=== PATIENT | male | born 1970 | race Caucasian/White ===

== ENCOUNTER → 2017-05-28 | Day surgery (SDC) | payer OTHER ==
[~2017-05-28] MED LIST: ACETAMINOPHEN 1000 MG/100 ML 100 ML IV ONE; ASPI81TA21 PO; BUPIVACAINE/EPINEPHRINE 0.25% PF 30 ML VIAL ONE; COZA100T PO; HYDR-3533 PO; LACTATED RINGER'S 1000 ML INJ 1,000 ML ONE; LIDOCAINE 1%/EPINEPHrine 1:100,000 SOLN 50 ML VIAL ONE; MAXZ25 PO; METF500 PO; MIDAZOLAM HCL 2 MG/2 ML VIAL ONE; TAB-TAB PO; ZOFR4TAB3 SL; ceFAZolin 2 GM PREMIX 0 ML ONE
== END | disposition home or self-care (01) ==
LOC: ESDC 07:03
PROVIDERS: ATTEND Surgery
DX: L02.214 Cutaneous abscess of groin (principal); Z53.8 Procedure and treatment not carried out for other reasons
CPT/HCPCS: G0463; J0131; J7120; 99211; J0690; J2250

== ENCOUNTER 2018-05-06 20:47 | Inpatient (IN) ==
--- NOTE | 2018-05-06 22:37 | XR ---
EXAM DATE: 05/06/2018 10:26 PM EST AGE/SEX: 47 years / Male INDICATIONS: Chest pressure and shortness of breath. CLINICAL DATA: This is the patient's initial encounter. Patient reports that signs and symptoms have been present for 3 days and indicates a pain score of 7/10. MEDICAL/SURGICAL HISTORY: Chronic obstructive pulmonary disease. None. COMPARISON: [facility], XR CHEST PA AND LAT, 02/26/2015. . FINDINGS: Small lung volumes and with associated trace bibasilar atelectasis and mild vascular crowding. No ple ural effusion seen. No pneumothorax. Heart size stable, within normal limits. CONCLUSION: Minimal bibasilar atelectasis. Electronically signed by: Ramirez Holloway MD 05/06/2018 10:36 PM EST
--- NOTE | 2018-05-06 22:38 | ED ---
HPI General Chief complaint: Medical Clearance Stated complaint: Heart/SOB Complaint/Doctor Sent Time Seen by Provider: 05/06/18 21:19 History of Present Illness HPI narrative: Patient is a 47-year-old male history of diabetes, is on Lasix for swelling of his lower extremities but denies a history of congestive heart failure. Presents the emergency department for evaluation of shortness of breath and leg swelling gradually worsening over the past few weeks. Patient also endorses a history of orthopnea. Denies any history of fever cough or congestion. Seen by his primary care physician who noted that the patient did have some rales and some pedal edema and sent here for further evaluation. Symptoms moderate, for the past few weeks, gradually worsening, context and associated signs symptoms as above. Related Data Home Medications Medication Instructions Recorded Confirmed amlodipine 5 mg PO DAILY 05/06/18 05/06/18 fluticasone [Flovent HFA] 1 puff INHALATION Q12H PRN 05/06/18 05/06/18 furosemide 40 mg PO DAILY 05/06/18 05/06/18 gabapentin 400 mg PO TID 05/06/18 05/06/18 losartan 100 mg PO DAILY 05/06/18 05/06/18 potassium chloride 10 meq PO DAILY 05/06/18 05/06/18 atorvastatin [Lipitor] 20 mg PO DAILY 05/07/18 05/07/18 Previous Rx's Medication Instructions Recorded fenofibrate nanocrystallized 145 mg PO DAILY #30 tab 05/11/18 glipizide 5 mg PO BID #60 tab 05/11/18 metformin [Glucophage] 1,000 mg PO BIDPC #120 tab 05/11/18 furosemide 40 mg PO BID@0900,1800 #60 tab 05/15/18 insulin aspart U-100 [Novolog 1 - 12 unit SUBCUT TIDAC 30 Days 05/15/18 Flexpen U-] insulin detemir U-100 [Levemir 25 unit SQ BID 30 Days #15 ml 05/15/18 FlexTouch U-100 Insulin] losartan 50 mg PO DAILY #30 tab 05/15/18 spironolactone [Aldactone] 25 mg PO DAILY #30 tab 05/15/18 Allergies Allergy/AdvReac Type Severity Reaction Status Date / Time morphine Allergy Intermediate Anaphylaxis Verified 05/06/18 21:53 Review of Systems ROS: all other systems reviewed are negative PMFSH Medical History Medical History CHF (congestive heart failure) (Acute) COPD (chronic obstructive pulmonary disease) (Acute) Diabetes (Acute) HLD (hyperlipidemia) (Acute) HTN (hypertension) (Acute) Surgical History Surgical History History of colon resection (Acute) Social History Social History Substance History: No History of Abuse Second Hand Smoke Exposure: Yes Smoking Status: Current every day smoker Tobacco Type: Cigarettes How Often Do You Have a Drink Containing Alcohol: Never Recent Travel in [facility] within the Last 8 Weeks: No Recent Out of Country Travel within the Last 8 Weeks: No Immunization History Tetanus Immunization: Unsure Exam Narrative Exam Narrative: GENERAL: Well-developed obese male, tachypneic. Not in extremities. SKIN: Focused skin assessment warm/dry. HEAD: Atraumatic. Normocephalic. EYES: Pupils equal and round. No scleral icterus. No injection or drainage. ENT: No nasal bleeding or discharge. Mucous membranes pink and moist. NECK: Trachea midline. No JVD. CARDIOVASCULAR: Regular rate and rhythm. No murmur appreciated. RESPIRATORY: No accessory muscle use. Good air entry with bibasilar rales which are fine.. Breath sounds equal bilaterally. GASTROINTESTINAL: Abdomen soft, non-tender, nondistended. Hepatic and splenic margins not palpable. MUSCULOSKELETAL: No obvious deformities. No clubbing. No cyanosis. 2-3+ pitting edema from the patella distally and equal bilaterally. NEUROLOGICAL: Awake and alert. No obvious cranial nerve deficits. Motor grossly within normal limits. Normal speech. PSYCHIATRIC: Appropriate mood and affect; insight and judgment normal. Course Initial Documented Vital Signs Temperature 99.4 F 05/06/18 21:15 Pulse Rate 99 H 05/06/18 21:15 Respiratory Rate 26 H 05/06/18 21:15 Blood Pressure 164/89 H 05/06/18 21:15 Pulse Oximetry 86 L 05/06/18 21:15 Last Documented Vital Signs Temperature 97.5 F L 05/15/18 12:00 Pulse Rate 83 05/15/18 12:00 Respiratory Rate 20 05/15/18 12:00 Blood Pressure 115/58 L 05/15/18 12:00 Pulse Oximetry 94 L 05/15/18 12:00 Sign Out Sign Out Data: Patient Sign Out occurred on 05/06/18 at 23:13. Patient's care was discussed, and care was transferred from Pato Clements MD to Rosales Adair MD. Sign Out Comment: Follow up CT PE protocol. Lasix has been given. Last updated by Pato Clements MD at 05/06/18 23:03 Post-Handoff Eval: Patient still with hypoxia, mid to low 80s. Some of this may be obstructive related to sleep apnea or obesity hypoventilation. Nonetheless even with awakening and stimulation is remains hypoxic. BNP and chest x-ray does not suggest overt volume overload or another etiology for his hypoxia. CT is negative for pulmonary embolism. Given the persistent hypoxia diagnostic uncertainty, will recommend admission. Spoke with Dr. Han, agrees to admit the patient. Medical Decision Making MDM Narrative Medical decision making narrative: Patient room to the emergency department, sign symptoms consistent with congestive heart failure versus new onset congestive heart failure. Patient also has hypoxic respiratory failure with initial oxygen saturations 86%. Chest x-ray obtained and the patient does not have significant enough pulmonary edema to explain his 86 statin I think is reasonable to pursue a CT PE protocol as well. Basic labs pending at this time , I reviewed his EKG and shows no signs of active ischemia. Patient will obligate need for admission for further evaluation of congestive heart failure and hypoxic respiratory failure. Discussed with Dr. Luo at 2300 shift change to follow-up the labs and disposition patient. Medical Screen Exam Complete: Yes Emergency Medical Condition: Yes Lab Data Result diagrams: 05/08/18 06:10 05/15/18 07:31 Lab Results 05/06/18 05/06/18 05/06/18 Range/Units 21:49 21:49 21:49 WBC 9.7 (4.0-11.0) th/mm3 RBC 5.12 (4.50-5.90) mil/mm3 Hgb 15.8 (13.0-17.0) gm/dL Hct 46.1 (39.0-51.0) % MCV 90.0 (80.0-100.0) fL MCH 30.9 (27.0-34.0) pg MCHC 34.3 (32.0-36.0) % RDW 16.1 (11.6-17.2) % Plt Count 351 (150-450) th/mm3 MPV 8.4 (7.0-11.0) fL Neut % (Auto) 58.7 (16.0-70.0) % Lymph % (Auto) 29.4 (9.0-44.0) % Swisher % (Auto) 7.0 (0.0-8.0) % Eos % (Auto) 4.1 H (0.0-4.0) % Baso % (Auto) 0.8 (0.0-2.0) % Neut # (Auto) 5.7 (1.8-7.7) th/mm3 Lymph # (Auto) 2.9 (1.0-4.8) th/mm3 Swisher # (Auto) 0.7 (0.0-0.9) th/mm3 Eos # (Auto) 0.4 (0.0-0.4) th/mm3 Baso # (Auto) 0.1 (0.0-0.2) th/mm3 WBC Differential . Differential Comment Auto diff final PT 10.1 (9.8-11.6) sec INR 1.0 Ratio APTT 25.7 (23.4-31.7) sec Puncture Site Patient Temperature O2 Saturation (90-100) % ABG pH (7.380-7.420) ABG pCO2 (38-42) mmHg ABG pO2 (61-120) mmHg ABG HCO3 (22-26) mmol/L ABG O2 Content (12.0-20.0) Vol % ABG Base Excess (-2-2) mmol/L ABG Methemoglobin (0-2) % Keith Test Hemoglobin (12.0-16.0) G/DL Carboxyhemoglobin (0-4) % O2 Delivery Device Liter Flow L/M Critical Value Sodium (136-145) meq/L Potassium (3.5-5.1) meq/L Chloride (98-107) meq/L Carbon Dioxide (21.0-32.0) meq/L Anion Gap (5-15) meq/L BUN (7-18) mg/dL Creatinine (0.60-1.30) mg/dL Estimated GFR (>89) mL/min POC Glucose (68-110) mg/dl Random Glucose (74-106) mg/dL Hemoglobin A1c (4.3-6.0) % Uric Acid (2.6-7.2) mg/dl Calcium (8.5-10.1) mg/dL Magnesium (1.5-2.5) mg/dL Total Bilirubin (0.2-1.0) mg/dL AST (15-37) U/L ALT (12-78) U/L Alkaline Phosphatase (45-117) U/L Total Creatine Kinase (39-308) U/L Troponin I (0.02-0.05) ng/mL B-Natriuretic Peptide 13 (0-100) pg/mL Total Protein (6.4-8.2) g/dL Albumin (3.4-5.0) g/dL Triglycerides (42-150) mg/dL Cholesterol (120-200) mg/dL LDL Cholesterol, Calc (0-99) mg/dL HDL Cholesterol (40.0-60.0) mg/dL Cholesterol/HDL Ratio Ratio 05/06/18 05/07/18 05/07/18 Range/Units 21:49 07:17 11:10 WBC (4.0-11.0) th/mm3 RBC (4.50-5.90) mil/mm3 Hgb (13.0-17.0) gm/dL Hct (39.0-51.0) % MCV (80.0-100.0) fL MCH (27.0-34.0) pg MCHC (32.0-36.0) % RDW (11.6-17.2) % Plt Count (150-450) th/mm3 MPV (7.0-11.0) fL Neut % (Auto) (16.0-70.0) % Lymph % (Auto) (9.0-44.0) % Swisher % (Auto) (0.0-8.0) % Eos % (Auto) (0.0-4.0) % Baso % (Auto) (0.0-2.0) % Neut # (Auto) (1.8-7.7) th/mm3 Lymph # (Auto) (1.0-4.8) th/mm3 Swisher # (Auto) (0.0-0.9) th/mm3 Eos # (Auto) (0.0-0.4) th/mm3 Baso # (Auto) (0.0-0.2) th/mm3 WBC Differential Differential Comment PT (9.8-11.6) sec INR Ratio APTT (23.4-31.7) sec Puncture Site Patient Temperature O2 Saturation (90-100) % ABG pH (7.380-7.420) ABG pCO2 (38-42) mmHg ABG pO2 (61-120) mmHg ABG HCO3 (22-26) mmol/L ABG O2 Content (12.0-20.0) Vol % ABG Base Excess (-2-2) mmol/L ABG Methemoglobin (0-2) % Keith Test Hemoglobin (12.0-16.0) G/DL Carboxyhemoglobin (0-4) % O2 Delivery Device Liter Flow L/M Critical Value Sodium 131 L 135 L (136-145) meq/L Potassium 4.6 4.3 (3.5-5.1) meq/L Chloride 92 L 92 L (98-107) meq/L Carbon Dioxide 34.2 H 36.3 H (21.0-32.0) meq/L Anion Gap 5 7 (5-15) meq/L BUN 18 17 (7-18) mg/dL Creatinine 1.16 0.99 (0.60-1.30) mg/dL Estimated GFR 67 L 81 L (>89) mL/min POC Glucose 312 H (68-110) mg/dl Random Glucose 400 H 420 H (74-106) mg/dL Hemoglobin A1c (4.3-6.0) % Uric Acid (2.6-7.2) mg/dl Calcium 8.0 L 8.5 (8.5-10.1) mg/dL Magnesium (1.5-2.5) mg/dL Total Bilirubin 0.7 (0.2-1.0) mg/dL AST 54 H (15-37) U/L ALT (12-78) U/L Alkaline Phosphatase 117 (45-117) U/L Total Creatine Kinase (39-308) U/L Troponin I Less than 0.02 L (0.02-0.05) ng/mL B-Natriuretic Peptide (0-100) pg/mL Total Protein 7.5 (6.4-8.2) g/dL Albumin 3.0 L (3.4-5.0) g/dL Triglycerides (42-150) mg/dL Cholesterol (120-200) mg/dL LDL Cholesterol, Calc (0-99) mg/dL HDL Cholesterol (40.0-60.0) mg/dL Cholesterol/HDL Ratio Ratio 05/07/18 05/07/18 05/07/18 Range/Units 11:10 13:02 16:54 WBC (4.0-11.0) th/mm3 RBC (4.50-5.90) mil/mm3 Hgb (13.0-17.0) gm/dL Hct (39.0-51.0) % MCV (80.0-100.0) fL MCH (27.0-34.0) pg MCHC (32.0-36.0) % RDW (11.6-17.2) % Plt Count (150-450) th/mm3 MPV (7.0-11.0) fL Neut % (Auto) (16.0-70.0) % Lymph % (Auto) (9.0-44.0) % Swisher % (Auto) (0.0-8.0) % Eos % (Auto) (0.0-4.0) % Baso % (Auto) (0.0-2.0) % Neut # (Auto) (1.8-7.7) th/mm3 Lymph # (Auto) (1.0-4.8) th/mm3 Swisher # (Auto) (0.0-0.9) th/mm3 Eos # (Auto) (0.0-0.4) th/mm3 Baso # (Auto) (0.0-0.2) th/mm3 WBC Differential Differential Comment PT (9.8-11.6) sec INR Ratio APTT (23.4-31.7) sec Puncture Site Patient Temperature O2 Saturation (90-100) % ABG pH (7.380-7.420) ABG pCO2 (38-42) mmHg ABG pO2 (61-120) mmHg ABG HCO3 (22-26) mmol/L ABG O2 Content (12.0-20.0) Vol % ABG Base Excess (-2-2) mmol/L ABG Methemoglobin (0-2) % Keith Test Hemoglobin (12.0-16.0) G/DL Carboxyhemoglobin (0-4) % O2 Delivery Device Liter Flow L/M Critical Value Sodium (136-145) meq/L Potassium (3.5-5.1) meq/L Chloride (98-107) meq/L Carbon Dioxide (21.0-32.0) meq/L Anion Gap (5-15) meq/L BUN (7-18) mg/dL Creatinine (0.60-1.30) mg/dL Estimated GFR (>89) mL/min POC Glucose 416 H 357 H (68-110) mg/dl Random Glucose (74-106) mg/dL Hemoglobin A1c (4.3-6.0) % Uric Acid 7.0 (2.6-7.2) mg/dl Calcium (8.5-10.1) mg/dL Magnesium (1.5-2.5) mg/dL Total Bilirubin (0.2-1.0) mg/dL AST (15-37) U/L ALT (12-78) U/L Alkaline Phosphatase (45-117) U/L Total Creatine Kinase (39-308) U/L Troponin I (0.02-0.05) ng/mL B-Natriuretic Peptide (0-100) pg/mL Total Protein (6.4-8.2) g/dL Albumin (3.4-5.0) g/dL Triglycerides (42-150) mg/dL Cholesterol (120-200) mg/dL LDL Cholesterol, Calc (0-99) mg/dL HDL Cholesterol (40.0-60.0) mg/dL Cholesterol/HDL Ratio Ratio 05/07/18 05/08/18 05/08/18 Range/Units 20:04 04:39 06:10 WBC 10.2 (4.0-11.0) th/mm3 RBC 5.23 (4.50-5.90) mil/mm3 Hgb 15.0 (13.0-17.0) gm/dL Hct 47.4 (39.0-51.0) % MCV 90.5 (80.0-100.0) fL MCH 28.7 (27.0-34.0) pg MCHC 31.7 L (32.0-36.0) % RDW 15.9 (11.6-17.2) % Plt Count 277 (150-450) th/mm3 MPV 7.4 (7.0-11.0) fL Neut % (Auto) 57.6 (16.0-70.0) % Lymph % (Auto) 29.9 (9.0-44.0) % Swisher % (Auto) 8.2 H (0.0-8.0) % Eos % (Auto) 3.7 (0.0-4.0) % Baso % (Auto) 0.6 (0.0-2.0) % Neut # (Auto) 5.9 (1.8-7.7) th/mm3 Lymph # (Auto) 3.1 (1.0-4.8) th/mm3 Swisher # (Auto) 0.8 (0.0-0.9) th/mm3 Eos # (Auto) 0.4 (0.0-0.4) th/mm3 Baso # (Auto) 0.1 (0.0-0.2) th/mm3 WBC Differential . Differential Comment Auto diff final PT (9.8-11.6) sec INR Ratio APTT (23.4-31.7) sec Puncture Site Patient Temperature O2 Saturation (90-100) % ABG pH (7.380-7.420) ABG pCO2 (38-42) mmHg ABG pO2 (61-120) mmHg ABG HCO3 (22-26) mmol/L ABG O2 Content (12.0-20.0) Vol % ABG Base Excess (-2-2) mmol/L ABG Methemoglobin (0-2) % Keith Test Hemoglobin (12.0-16.0) G/DL Carboxyhemoglobin (0-4) % O2 Delivery Device Liter Flow L/M Critical Value Sodium (136-145) meq/L Potassium (3.5-5.1) meq/L Chloride (98-107) meq/L Carbon Dioxide (21.0-32.0) meq/L Anion Gap (5-15) meq/L BUN (7-18) mg/dL Creatinine (0.60-1.30) mg/dL Estimated GFR (>89) mL/min POC Glucose 307 H 230 H (68-110) mg/dl Random Glucose (74-106) mg/dL Hemoglobin A1c (4.3-6.0) % Uric Acid (2.6-7.2) mg/dl Calcium (8.5-10.1) mg/dL Magnesium (1.5-2.5) mg/dL Total Bilirubin (0.2-1.0) mg/dL AST (15-37) U/L ALT (12-78) U/L Alkaline Phosphatase (45-117) U/L Total Creatine Kinase (39-308) U/L Troponin I (0.02-0.05) ng/mL B-Natriuretic Peptide (0-100) pg/mL Total Protein (6.4-8.2) g/dL Albumin (3.4-5.0) g/dL Triglycerides (42-150) mg/dL Cholesterol (120-200) mg/dL LDL Cholesterol, Calc (0-99) mg/dL HDL Cholesterol (40.0-60.0) mg/dL Cholesterol/HDL Ratio Ratio 05/08/18 05/08/18 05/08/18 Range/Units 06:10 06:10 06:10 WBC (4.0-11.0) th/mm3 RBC (4.50-5.90) mil/mm3 Hgb (13.0-17.0) gm/dL Hct (39.0-51.0) % MCV (80.0-100.0) fL MCH (27.0-34.0) pg MCHC (32.0-36.0) % RDW (11.6-17.2) % Plt Count (150-450) th/mm3 MPV (7.0-11.0) fL Neut % (Auto) (16.0-70.0) % Lymph % (Auto) (9.0-44.0) % Swisher % (Auto) (0.0-8.0) % Eos % (Auto) (0.0-4.0) % Baso % (Auto) (0.0-2.0) % Neut # (Auto) (1.8-7.7) th/mm3 Lymph # (Auto) (1.0-4.8) th/mm3 Swisher # (Auto) (0.0-0.9) th/mm3 Eos # (Auto) (0.0-0.4) th/mm3 Baso # (Auto) (0.0-0.2) th/mm3 WBC Differential Differential Comment PT (9.8-11.6) sec INR Ratio APTT (23.4-31.7) sec Puncture Site Patient Temperature O2 Saturation (90-100) % ABG pH (7.380-7.420) ABG pCO2 (38-42) mmHg ABG pO2 (61-120) mmHg ABG HCO3 (22-26) mmol/L ABG O2 Content (12.0-20.0) Vol % ABG Base Excess (-2-2) mmol/L ABG Methemoglobin (0-2) % Keith Test Hemoglobin (12.0-16.0) G/DL Carboxyhemoglobin (0-4) % O2 Delivery Device Liter Flow L/M Critical Value Sodium 135 L (136-145) meq/L Potassium 3.4 L D (3.5-5.1) meq/L Chloride 91 L (98-107) meq/L Carbon Dioxide 37.5 H (21.0-32.0) meq/L Anion Gap 7 (5-15) meq/L BUN 19 H (7-18) mg/dL Creatinine 0.94 (0.60-1.30) mg/dL Estimated GFR 86 L (>89) mL/min POC Glucose (68-110) mg/dl Random Glucose 265 H D (74-106) mg/dL Hemoglobin A1c 14.3 H (4.3-6.0) % Uric Acid (2.6-7.2) mg/dl Calcium 8.5 (8.5-10.1) mg/dL Magnesium (1.5-2.5) mg/dL Total Bilirubin (0.2-1.0) mg/dL AST (15-37) U/L ALT (12-78) U/L Alkaline Phosphatase (45-117) U/L Total Creatine Kinase 47 (39-308) U/L Troponin I Less than 0.02 L (0.02-0.05) ng/mL B-Natriuretic Peptide (0-100) pg/mL Total Protein (6.4-8.2) g/dL Albumin (3.4-5.0) g/dL Triglycerides (42-150) mg/dL Cholesterol (120-200) mg/dL LDL Cholesterol, Calc (0-99) mg/dL HDL Cholesterol (40.0-60.0) mg/dL Cholesterol/HDL Ratio Ratio 05/08/18 05/08/18 05/08/18 Range/Units 08:24 13:05 17:19 WBC (4.0-11.0) th/mm3 RBC (4.50-5.90) mil/mm3 Hgb (13.0-17.0) gm/dL Hct (39.0-51.0) % MCV (80.0-100.0) fL MCH (27.0-34.0) pg MCHC (32.0-36.0) % RDW (11.6-17.2) % Plt Count (150-450) th/mm3 MPV (7.0-11.0) fL Neut % (Auto) (16.0-70.0) % Lymph % (Auto) (9.0-44.0) % Swisher % (Auto) (0.0-8.0) % Eos % (Auto) (0.0-4.0) % Baso % (Auto) (0.0-2.0) % Neut # (Auto) (1.8-7.7) th/mm3 Lymph # (Auto) (1.0-4.8) th/mm3 Swisher # (Auto) (0.0-0.9) th/mm3 Eos # (Auto) (0.0-0.4) th/mm3 Baso # (Auto) (0.0-0.2) th/mm3 WBC Differential Differential Comment PT (9.8-11.6) sec INR Ratio APTT (23.4-31.7) sec Puncture Site Patient Temperature O2 Saturation (90-100) % ABG pH (7.380-7.420) ABG pCO2 (38-42) mmHg ABG pO2 (61-120) mmHg ABG HCO3 (22-26) mmol/L ABG O2 Content (12.0-20.0) Vol % ABG Base Excess (-2-2) mmol/L ABG Methemoglobin (0-2) % Keith Test Hemoglobin (12.0-16.0) G/DL Carboxyhemoglobin (0-4) % O2 Delivery Device Liter Flow L/M Critical Value Sodium (136-145) meq/L Potassium (3.5-5.1) meq/L Chloride (98-107) meq/L Carbon Dioxide (21.0-32.0) meq/L Anion Gap (5-15) meq/L BUN (7-18) mg/dL Creatinine (0.60-1.30) mg/dL Estimated GFR (>89) mL/min POC Glucose 284 H 281 H 328 H (68-110) mg/dl Random Glucose (74-106) mg/dL Hemoglobin A1c (4.3-6.0) % Uric Acid (2.6-7.2) mg/dl Calcium (8.5-10.1) mg/dL Magnesium (1.5-2.5) mg/dL Total Bilirubin (0.2-1.0) mg/dL AST (15-37) U/L ALT (12-78) U/L Alkaline Phosphatase (45-117) U/L Total Creatine Kinase (39-308) U/L Troponin I (0.02-0.05) ng/mL B-Natriuretic Peptide (0-100) pg/mL Total Protein (6.4-8.2) g/dL Albumin (3.4-5.0) g/dL Triglycerides (42-150) mg/dL Cholesterol (120-200) mg/dL LDL Cholesterol, Calc (0-99) mg/dL HDL Cholesterol (40.0-60.0) mg/dL Cholesterol/HDL Ratio Ratio 05/08/18 05/09/18 05/09/18 Range/Units 19:49 07:11 08:21 WBC (4.0-11.0) th/mm3 RBC (4.50-5.90) mil/mm3 Hgb (13.0-17.0) gm/dL Hct (39.0-51.0) % MCV (80.0-100.0) fL MCH (27.0-34.0) pg MCHC (32.0-36.0) % RDW (11.6-17.2) % Plt Count (150-450) th/mm3 MPV (7.0-11.0) fL Neut % (Auto) (16.0-70.0) % Lymph % (Auto) (9.0-44.0) % Swisher % (Auto) (0.0-8.0) % Eos % (Auto) (0.0-4.0) % Baso % (Auto) (0.0-2.0) % Neut # (Auto) (1.8-7.7) th/mm3 Lymph # (Auto) (1.0-4.8) th/mm3 Swisher # (Auto) (0.0-0.9) th/mm3 Eos # (Auto) (0.0-0.4) th/mm3 Baso # (Auto) (0.0-0.2) th/mm3 WBC Differential Differential Comment PT (9.8-11.6) sec INR Ratio APTT (23.4-31.7) sec Puncture Site Patient Temperature O2 Saturation (90-100) % ABG pH (7.380-7.420) ABG pCO2 (38-42) mmHg ABG pO2 (61-120) mmHg ABG HCO3 (22-26) mmol/L ABG O2 Content (12.0-20.0) Vol % ABG Base Excess (-2-2) mmol/L ABG Methemoglobin (0-2) % Keith Test Hemoglobin (12.0-16.0) G/DL Carboxyhemoglobin (0-4) % O2 Delivery Device Liter Flow L/M Critical Value Sodium 136 (136-145) meq/L Potassium 3.9 (3.5-5.1) meq/L Chloride 94 L (98-107) meq/L Carbon Dioxide 34.1 H (21.0-32.0) meq/L Anion Gap 8 (5-15) meq/L BUN 20 H (7-18) mg/dL Creatinine 0.82 (0.60-1.30) mg/dL Estimated GFR Greater than 89 (>89) mL/min POC Glucose 349 H 225 H (68-110) mg/dl Random Glucose 258 H (74-106) mg/dL Hemoglobin A1c (4.3-6.0) % Uric Acid (2.6-7.2) mg/dl Calcium 9.0 (8.5-10.1) mg/dL Magnesium (1.5-2.5) mg/dL Total Bilirubin (0.2-1.0) mg/dL AST (15-37) U/L ALT (12-78) U/L Alkaline Phosphatase (45-117) U/L Total Creatine Kinase (39-308) U/L Troponin I (0.02-0.05) ng/mL B-Natriuretic Peptide (0-100) pg/mL Total Protein (6.4-8.2) g/dL Albumin (3.4-5.0) g/dL Triglycerides 922 H (42-150) mg/dL Cholesterol 254 H (120-200) mg/dL LDL Cholesterol, Calc (0-99) mg/dL HDL Cholesterol 26.5 L (40.0-60.0) mg/dL Cholesterol/HDL Ratio 9.58 Ratio 05/09/18 05/09/18 05/09/18 Range/Units 12:19 18:08 19:58 WBC (4.0-11.0) th/mm3 RBC (4.50-5.90) mil/mm3 Hgb (13.0-17.0) gm/dL Hct (39.0-51.0) % MCV (80.0-100.0) fL MCH (27.0-34.0) pg MCHC (32.0-36.0) % RDW (11.6-17.2) % Plt Count (150-450) th/mm3 MPV (7.0-11.0) fL Neut % (Auto) (16.0-70.0) % Lymph % (Auto) (9.0-44.0) % Swisher % (Auto) (0.0-8.0) % Eos % (Auto) (0.0-4.0) % Baso % (Auto) (0.0-2.0) % Neut # (Auto) (1.8-7.7) th/mm3 Lymph # (Auto) (1.0-4.8) th/mm3 Swisher # (Auto) (0.0-0.9) th/mm3 Eos # (Auto) (0.0-0.4) th/mm3 Baso # (Auto) (0.0-0.2) th/mm3 WBC Differential Differential Comment PT (9.8-11.6) sec INR Ratio APTT (23.4-31.7) sec Puncture Site Patient Temperature O2 Saturation (90-100) % ABG pH (7.380-7.420) ABG pCO2 (38-42) mmHg ABG pO2 (61-120) mmHg ABG HCO3 (22-26) mmol/L ABG O2 Content (12.0-20.0) Vol % ABG Base Excess (-2-2) mmol/L ABG Methemoglobin (0-2) % Keith Test Hemoglobin (12.0-16.0) G/DL Carboxyhemoglobin (0-4) % O2 Delivery Device Liter Flow L/M Critical Value Sodium (136-145) meq/L Potassium (3.5-5.1) meq/L Chloride (98-107) meq/L Carbon Dioxide (21.0-32.0) meq/L Anion Gap (5-15) meq/L BUN (7-18) mg/dL Creatinine (0.60-1.30) mg/dL Estimated GFR (>89) mL/min POC Glucose 336 H 287 H 222 H (68-110) mg/dl Random Glucose (74-106) mg/dL Hemoglobin A1c (4.3-6.0) % Uric Acid (2.6-7.2) mg/dl Calcium (8.5-10.1) mg/dL Magnesium (1.5-2.5) mg/dL Total Bilirubin (0.2-1.0) mg/dL AST (15-37) U/L ALT (12-78) U/L Alkaline Phosphatase (45-117) U/L Total Creatine Kinase (39-308) U/L Troponin I (0.02-0.05) ng/mL B-Natriuretic Peptide (0-100) pg/mL Total Protein (6.4-8.2) g/dL Albumin (3.4-5.0) g/dL Triglycerides (42-150) mg/dL Cholesterol (120-200) mg/dL LDL Cholesterol, Calc (0-99) mg/dL HDL Cholesterol (40.0-60.0) mg/dL Cholesterol/HDL Ratio Ratio 05/10/18 05/10/18 05/10/18 Range/Units 07:12 12:00 17:53 WBC (4.0-11.0) th/mm3 RBC (4.50-5.90) mil/mm3 Hgb (13.0-17.0) gm/dL Hct (39.0-51.0) % MCV (80.0-100.0) fL MCH (27.0-34.0) pg MCHC (32.0-36.0) % RDW (11.6-17.2) % Plt Count (150-450) th/mm3 MPV (7.0-11.0) fL Neut % (Auto) (16.0-70.0) % Lymph % (Auto) (9.0-44.0) % Swisher % (Auto) (0.0-8.0) % Eos % (Auto) (0.0-4.0) % Baso % (Auto) (0.0-2.0) % Neut # (Auto) (1.8-7.7) th/mm3 Lymph # (Auto) (1.0-4.8) th/mm3 Swisher # (Auto) (0.0-0.9) th/mm3 Eos # (Auto) (0.0-0.4) th/mm3 Baso # (Auto) (0.0-0.2) th/mm3 WBC Differential Differential Comment PT (9.8-11.6) sec INR Ratio APTT (23.4-31.7) sec Puncture Site Patient Temperature O2 Saturation (90-100) % ABG pH (7.380-7.420) ABG pCO2 (38-42) mmHg ABG pO2 (61-120) mmHg ABG HCO3 (22-26) mmol/L ABG O2 Content (12.0-20.0) Vol % ABG Base Excess (-2-2) mmol/L ABG Methemoglobin (0-2) % Keith Test Hemoglobin (12.0-16.0) G/DL Carboxyhemoglobin (0-4) % O2 Delivery Device Liter Flow L/M Critical Value Sodium (136-145) meq/L Potassium (3.5-5.1) meq/L Chloride (98-107) meq/L Carbon Dioxide (21.0-32.0) meq/L Anion Gap (5-15) meq/L BUN (7-18) mg/dL Creatinine (0.60-1.30) mg/dL Estimated GFR (>89) mL/min POC Glucose 243 H 237 H 233 H (68-110) mg/dl Random Glucose (74-106) mg/dL Hemoglobin A1c (4.3-6.0) % Uric Acid (2.6-7.2) mg/dl Calcium (8.5-10.1) mg/dL Magnesium (1.5-2.5) mg/dL Total Bilirubin (0.2-1.0) mg/dL AST (15-37) U/L ALT (12-78) U/L Alkaline Phosphatase (45-117) U/L Total Creatine Kinase (39-308) U/L Troponin I (0.02-0.05) ng/mL B-Natriuretic Peptide (0-100) pg/mL Total Protein (6.4-8.2) g/dL Albumin (3.4-5.0) g/dL Triglycerides (42-150) mg/dL Cholesterol (120-200) mg/dL LDL Cholesterol, Calc (0-99) mg/dL HDL Cholesterol (40.0-60.0) mg/dL Cholesterol/HDL Ratio Ratio 05/10/18 05/11/18 05/11/18 Range/Units 20:06 04:57 04:57 WBC (4.0-11.0) th/mm3 RBC (4.50-5.90) mil/mm3 Hgb (13.0-17.0) gm/dL Hct (39.0-51.0) % MCV (80.0-100.0) fL MCH (27.0-34.0) pg MCHC (32.0-36.0) % RDW (11.6-17.2) % Plt Count (150-450) th/mm3 MPV (7.0-11.0) fL Neut % (Auto) (16.0-70.0) % Lymph % (Auto) (9.0-44.0) % Swisher % (Auto) (0.0-8.0) % Eos % (Auto) (0.0-4.0) % Baso % (Auto) (0.0-2.0) % Neut # (Auto) (1.8-7.7) th/mm3 Lymph # (Auto) (1.0-4.8) th/mm3 Swisher # (Auto) (0.0-0.9) th/mm3 Eos # (Auto) (0.0-0.4) th/mm3 Baso # (Auto) (0.0-0.2) th/mm3 WBC Differential Differential Comment PT (9.8-11.6) sec INR Ratio APTT (23.4-31.7) sec Puncture Site Patient Temperature O2 Saturation (90-100) % ABG pH (7.380-7.420) ABG pCO2 (38-42) mmHg ABG pO2 (61-120) mmHg ABG HCO3 (22-26) mmol/L ABG O2 Content (12.0-20.0) Vol % ABG Base Excess (-2-2) mmol/L ABG Methemoglobin (0-2) % Keith Test Hemoglobin (12.0-16.0) G/DL Carboxyhemoglobin (0-4) % O2 Delivery Device Liter Flow L/M Critical Value Sodium 136 (136-145) meq/L Potassium 4.2 (3.5-5.1) meq/L Chloride 94 L (98-107) meq/L Carbon Dioxide 37.5 H (21.0-32.0) meq/L Anion Gap 5 (5-15) meq/L BUN 21 H (7-18) mg/dL Creatinine 0.85 (0.60-1.30) mg/dL Estimated GFR Greater than 89 (>89) mL/min POC Glucose 288 H (68-110) mg/dl Random Glucose 227 H (74-106) mg/dL Hemoglobin A1c (4.3-6.0) % Uric Acid (2.6-7.2) mg/dl Calcium 8.1 L D (8.5-10.1) mg/dL Magnesium 2.4 (1.5-2.5) mg/dL Total Bilirubin (0.2-1.0) mg/dL AST (15-37) U/L ALT (12-78) U/L Alkaline Phosphatase (45-117) U/L Total Creatine Kinase (39-308) U/L Troponin I (0.02-0.05) ng/mL B-Natriuretic Peptide 16 (0-100) pg/mL Total Protein (6.4-8.2) g/dL Albumin (3.4-5.0) g/dL Triglycerides (42-150) mg/dL Cholesterol (120-200) mg/dL LDL Cholesterol, Calc (0-99) mg/dL HDL Cholesterol (40.0-60.0) mg/dL Cholesterol/HDL Ratio Ratio 05/11/18 05/11/18 05/11/18 Range/Units 07:17 12:38 17:28 WBC (4.0-11.0) th/mm3 RBC (4.50-5.90) mil/mm3 Hgb (13.0-17.0) gm/dL Hct (39.0-51.0) % MCV (80.0-100.0) fL MCH (27.0-34.0) pg MCHC (32.0-36.0) % RDW (11.6-17.2) % Plt Count (150-450) th/mm3 MPV (7.0-11.0) fL Neut % (Auto) (16.0-70.0) % Lymph % (Auto) (9.0-44.0) % Swisher % (Auto) (0.0-8.0) % Eos % (Auto) (0.0-4.0) % Baso % (Auto) (0.0-2.0) % Neut # (Auto) (1.8-7.7) th/mm3 Lymph # (Auto) (1.0-4.8) th/mm3 Swisher # (Auto) (0.0-0.9) th/mm3 Eos # (Auto) (0.0-0.4) th/mm3 Baso # (Auto) (0.0-0.2) th/mm3 WBC Differential Differential Comment PT (9.8-11.6) sec INR Ratio APTT (23.4-31.7) sec Puncture Site Patient Temperature O2 Saturation (90-100) % ABG pH (7.380-7.420) ABG pCO2 (38-42) mmHg ABG pO2 (61-120) mmHg ABG HCO3 (22-26) mmol/L ABG O2 Content (12.0-20.0) Vol % ABG Base Excess (-2-2) mmol/L ABG Methemoglobin (0-2) % Keith Test Hemoglobin (12.0-16.0) G/DL Carboxyhemoglobin (0-4) % O2 Delivery Device Liter Flow L/M Critical Value Sodium (136-145) meq/L Potassium (3.5-5.1) meq/L Chloride (98-107) meq/L Carbon Dioxide (21.0-32.0) meq/L Anion Gap (5-15) meq/L BUN (7-18) mg/dL Creatinine (0.60-1.30) mg/dL Estimated GFR (>89) mL/min POC Glucose 236 H 274 H 280 H (68-110) mg/dl Random Glucose (74-106) mg/dL Hemoglobin A1c (4.3-6.0) % Uric Acid (2.6-7.2) mg/dl Calcium (8.5-10.1) mg/dL Magnesium (1.5-2.5) mg/dL Total Bilirubin (0.2-1.0) mg/dL AST (15-37) U/L ALT (12-78) U/L Alkaline Phosphatase (45-117) U/L Total Creatine Kinase (39-308) U/L Troponin I (0.02-0.05) ng/mL B-Natriuretic Peptide (0-100) pg/mL Total Protein (6.4-8.2) g/dL Albumin (3.4-5.0) g/dL Triglycerides (42-150) mg/dL Cholesterol (120-200) mg/dL LDL Cholesterol, Calc (0-99) mg/dL HDL Cholesterol (40.0-60.0) mg/dL Cholesterol/HDL Ratio Ratio 05/11/18 05/11/18 05/12/18 Range/Units 19:49 20:20 05:08 WBC (4.0-11.0) th/mm3 RBC (4.50-5.90) mil/mm3 Hgb (13.0-17.0) gm/dL Hct (39.0-51.0) % MCV (80.0-100.0) fL MCH (27.0-34.0) pg MCHC (32.0-36.0) % RDW (11.6-17.2) % Plt Count (150-450) th/mm3 MPV (7.0-11.0) fL Neut % (Auto) (16.0-70.0) % Lymph % (Auto) (9.0-44.0) % Swisher % (Auto) (0.0-8.0) % Eos % (Auto) (0.0-4.0) % Baso % (Auto) (0.0-2.0) % Neut # (Auto) (1.8-7.7) th/mm3 Lymph # (Auto) (1.0-4.8) th/mm3 Swisher # (Auto) (0.0-0.9) th/mm3 Eos # (Auto) (0.0-0.4) th/mm3 Baso # (Auto) (0.0-0.2) th/mm3 WBC Differential Differential Comment PT (9.8-11.6) sec INR Ratio APTT (23.4-31.7) sec Puncture Site Right radial Patient Temperature 98.6 O2 Saturation 93 (90-100) % ABG pH 7.38 (7.380-7.420) ABG pCO2 70 H* (38-42) mmHg ABG pO2 81 (61-120) mmHg ABG HCO3 41 H (22-26) mmol/L ABG O2 Content 18.8 (12.0-20.0) Vol % ABG Base Excess 15.1 H (-2-2) mmol/L ABG Methemoglobin 1.3 (0-2) % Keith Test Present Hemoglobin 14.4 (12.0-16.0) G/DL Carboxyhemoglobin 1.7 (0-4) % O2 Delivery Device Nasal cannula Liter Flow 4.00 L/M Critical Value Yes Sodium 135 L (136-145) meq/L Potassium 4.1 (3.5-5.1) meq/L Chloride 92 L (98-107) meq/L Carbon Dioxide 38.4 H (21.0-32.0) meq/L Anion Gap 5 (5-15) meq/L BUN 28 H (7-18) mg/dL Creatinine 0.88 (0.60-1.30) mg/dL Estimated GFR Greater than 89 (>89) mL/min POC Glucose 256 H (68-110) mg/dl Random Glucose 168 H (74-106) mg/dL Hemoglobin A1c (4.3-6.0) % Uric Acid (2.6-7.2) mg/dl Calcium 9.0 D (8.5-10.1) mg/dL Magnesium (1.5-2.5) mg/dL Total Bilirubin (0.2-1.0) mg/dL AST (15-37) U/L ALT (12-78) U/L Alkaline Phosphatase (45-117) U/L Total Creatine Kinase (39-308) U/L Troponin I (0.02-0.05) ng/mL B-Natriuretic Peptide (0-100) pg/mL Total Protein (6.4-8.2) g/dL Albumin (3.4-5.0) g/dL Triglycerides (42-150) mg/dL Cholesterol (120-200) mg/dL LDL Cholesterol, Calc (0-99) mg/dL HDL Cholesterol (40.0-60.0) mg/dL Cholesterol/HDL Ratio Ratio 05/12/18 05/12/18 05/12/18 Range/Units 05:08 07:23 12:05 WBC (4.0-11.0) th/mm3 RBC (4.50-5.90) mil/mm3 Hgb (13.0-17.0) gm/dL Hct (39.0-51.0) % MCV (80.0-100.0) fL MCH (27.0-34.0) pg MCHC (32.0-36.0) % RDW (11.6-17.2) % Plt Count (150-450) th/mm3 MPV (7.0-11.0) fL Neut % (Auto) (16.0-70.0) % Lymph % (Auto) (9.0-44.0) % Swisher % (Auto) (0.0-8.0) % Eos % (Auto) (0.0-4.0) % Baso % (Auto) (0.0-2.0) % Neut # (Auto) (1.8-7.7) th/mm3 Lymph # (Auto) (1.0-4.8) th/mm3 Swisher # (Auto) (0.0-0.9) th/mm3 Eos # (Auto) (0.0-0.4) th/mm3 Baso # (Auto) (0.0-0.2) th/mm3 WBC Differential Differential Comment PT (9.8-11.6) sec INR Ratio APTT (23.4-31.7) sec Puncture Site Patient Temperature O2 Saturation (90-100) % ABG pH (7.380-7.420) ABG pCO2 (38-42) mmHg ABG pO2 (61-120) mmHg ABG HCO3 (22-26) mmol/L ABG O2 Content (12.0-20.0) Vol % ABG Base Excess (-2-2) mmol/L ABG Methemoglobin (0-2) % Keith Test Hemoglobin (12.0-16.0) G/DL Carboxyhemoglobin (0-4) % O2 Delivery Device Liter Flow L/M Critical Value Sodium (136-145) meq/L Potassium (3.5-5.1) meq/L Chloride (98-107) meq/L Carbon Dioxide (21.0-32.0) meq/L Anion Gap (5-15) meq/L BUN (7-18) mg/dL Creatinine (0.60-1.30) mg/dL Estimated GFR (>89) mL/min POC Glucose 151 H 227 H (68-110) mg/dl Random Glucose (74-106) mg/dL Hemoglobin A1c (4.3-6.0) % Uric Acid (2.6-7.2) mg/dl Calcium (8.5-10.1) mg/dL Magnesium (1.5-2.5) mg/dL Total Bilirubin (0.2-1.0) mg/dL AST (15-37) U/L ALT (12-78) U/L Alkaline Phosphatase (45-117) U/L Total Creatine Kinase (39-308) U/L Troponin I (0.02-0.05) ng/mL B-Natriuretic Peptide 7 (0-100) pg/mL Total Protein (6.4-8.2) g/dL Albumin (3.4-5.0) g/dL Triglycerides (42-150) mg/dL Cholesterol (120-200) mg/dL LDL Cholesterol, Calc (0-99) mg/dL HDL Cholesterol (40.0-60.0) mg/dL Cholesterol/HDL Ratio Ratio 05/12/18 05/12/18 05/13/18 Range/Units 17:33 21:42 07:12 WBC (4.0-11.0) th/mm3 RBC (4.50-5.90) mil/mm3 Hgb (13.0-17.0) gm/dL Hct (39.0-51.0) % MCV (80.0-100.0) fL MCH (27.0-34.0) pg MCHC (32.0-36.0) % RDW (11.6-17.2) % Plt Count (150-450) th/mm3 MPV (7.0-11.0) fL Neut % (Auto) (16.0-70.0) % Lymph % (Auto) (9.0-44.0) % Swisher % (Auto) (0.0-8.0) % Eos % (Auto) (0.0-4.0) % Baso % (Auto) (0.0-2.0) % Neut # (Auto) (1.8-7.7) th/mm3 Lymph # (Auto) (1.0-4.8) th/mm3 Swisher # (Auto) (0.0-0.9) th/mm3 Eos # (Auto) (0.0-0.4) th/mm3 Baso # (Auto) (0.0-0.2) th/mm3 WBC Differential Differential Comment PT (9.8-11.6) sec INR Ratio APTT (23.4-31.7) sec Puncture Site Patient Temperature O2 Saturation (90-100) % ABG pH (7.380-7.420) ABG pCO2 (38-42) mmHg ABG pO2 (61-120) mmHg ABG HCO3 (22-26) mmol/L ABG O2 Content (12.0-20.0) Vol % ABG Base Excess (-2-2) mmol/L ABG Methemoglobin (0-2) % Keith Test Hemoglobin (12.0-16.0) G/DL Carboxyhemoglobin (0-4) % O2 Delivery Device Liter Flow L/M Critical Value Sodium 136 (136-145) meq/L Potassium 4.7 (3.5-5.1) meq/L Chloride 85 L (98-107) meq/L Carbon Dioxide 43.3 H (21.0-32.0) meq/L Anion Gap 8 (5-15) meq/L BUN 37 H (7-18) mg/dL Creatinine 1.16 (0.60-1.30) mg/dL Estimated GFR 67 L (>89) mL/min POC Glucose 315 H 265 H (68-110) mg/dl Random Glucose 209 H (74-106) mg/dL Hemoglobin A1c (4.3-6.0) % Uric Acid (2.6-7.2) mg/dl Calcium 9.4 (8.5-10.1) mg/dL Magnesium (1.5-2.5) mg/dL Total Bilirubin (0.2-1.0) mg/dL AST (15-37) U/L ALT (12-78) U/L Alkaline Phosphatase (45-117) U/L Total Creatine Kinase (39-308) U/L Troponin I (0.02-0.05) ng/mL B-Natriuretic Peptide (0-100) pg/mL Total Protein (6.4-8.2) g/dL Albumin (3.4-5.0) g/dL Triglycerides (42-150) mg/dL Cholesterol (120-200) mg/dL LDL Cholesterol, Calc (0-99) mg/dL HDL Cholesterol (40.0-60.0) mg/dL Cholesterol/HDL Ratio Ratio 05/13/18 05/13/18 05/13/18 Range/Units 08:00 12:18 15:49 WBC (4.0-11.0) th/mm3 RBC (4.50-5.90) mil/mm3 Hgb (13.0-17.0) gm/dL Hct (39.0-51.0) % MCV (80.0-100.0) fL MCH (27.0-34.0) pg MCHC (32.0-36.0) % RDW (11.6-17.2) % Plt Count (150-450) th/mm3 MPV (7.0-11.0) fL Neut % (Auto) (16.0-70.0) % Lymph % (Auto) (9.0-44.0) % Swisher % (Auto) (0.0-8.0) % Eos % (Auto) (0.0-4.0) % Baso % (Auto) (0.0-2.0) % Neut # (Auto) (1.8-7.7) th/mm3 Lymph # (Auto) (1.0-4.8) th/mm3 Swisher # (Auto) (0.0-0.9) th/mm3 Eos # (Auto) (0.0-0.4) th/mm3 Baso # (Auto) (0.0-0.2) th/mm3 WBC Differential Differential Comment PT (9.8-11.6) sec INR Ratio APTT (23.4-31.7) sec Puncture Site Patient Temperature O2 Saturation (90-100) % ABG pH (7.380-7.420) ABG pCO2 (38-42) mmHg ABG pO2 (61-120) mmHg ABG HCO3 (22-26) mmol/L ABG O2 Content (12.0-20.0) Vol % ABG Base Excess (-2-2) mmol/L ABG Methemoglobin (0-2) % Keith Test Hemoglobin (12.0-16.0) G/DL Carboxyhemoglobin (0-4) % O2 Delivery Device Liter Flow L/M Critical Value Sodium (136-145) meq/L Potassium (3.5-5.1) meq/L Chloride (98-107) meq/L Carbon Dioxide (21.0-32.0) meq/L Anion Gap (5-15) meq/L BUN (7-18) mg/dL Creatinine (0.60-1.30) mg/dL Estimated GFR (>89) mL/min POC Glucose 280 H 243 H 206 H (68-110) mg/dl Random Glucose (74-106) mg/dL Hemoglobin A1c (4.3-6.0) % Uric Acid (2.6-7.2) mg/dl Calcium (8.5-10.1) mg/dL Magnesium (1.5-2.5) mg/dL Total Bilirubin (0.2-1.0) mg/dL AST (15-37) U/L ALT (12-78) U/L Alkaline Phosphatase (45-117) U/L Total Creatine Kinase (39-308) U/L Troponin I (0.02-0.05) ng/mL B-Natriuretic Peptide (0-100) pg/mL Total Protein (6.4-8.2) g/dL Albumin (3.4-5.0) g/dL Triglycerides (42-150) mg/dL Cholesterol (120-200) mg/dL LDL Cholesterol, Calc (0-99) mg/dL HDL Cholesterol (40.0-60.0) mg/dL Cholesterol/HDL Ratio Ratio 05/13/18 05/14/18 05/14/18 Range/Units 20:06 05:53 08:10 WBC (4.0-11.0) th/mm3 RBC (4.50-5.90) mil/mm3 Hgb (13.0-17.0) gm/dL Hct (39.0-51.0) % MCV (80.0-100.0) fL MCH (27.0-34.0) pg MCHC (32.0-36.0) % RDW (11.6-17.2) % Plt Count (150-450) th/mm3 MPV (7.0-11.0) fL Neut % (Auto) (16.0-70.0) % Lymph % (Auto) (9.0-44.0) % Swisher % (Auto) (0.0-8.0) % Eos % (Auto) (0.0-4.0) % Baso % (Auto) (0.0-2.0) % Neut # (Auto) (1.8-7.7) th/mm3 Lymph # (Auto) (1.0-4.8) th/mm3 Swisher # (Auto) (0.0-0.9) th/mm3 Eos # (Auto) (0.0-0.4) th/mm3 Baso # (Auto) (0.0-0.2) th/mm3 WBC Differential Differential Comment PT (9.8-11.6) sec INR Ratio APTT (23.4-31.7) sec Puncture Site Patient Temperature O2 Saturation (90-100) % ABG pH (7.380-7.420) ABG pCO2 (38-42) mmHg ABG pO2 (61-120) mmHg ABG HCO3 (22-26) mmol/L ABG O2 Content (12.0-20.0) Vol % ABG Base Excess (-2-2) mmol/L ABG Methemoglobin (0-2) % Keith Test Hemoglobin (12.0-16.0) G/DL Carboxyhemoglobin (0-4) % O2 Delivery Device Liter Flow L/M Critical Value Sodium 135 L (136-145) meq/L Potassium 4.3 (3.5-5.1) meq/L Chloride 89 L (98-107) meq/L Carbon Dioxide 43.1 H (21.0-32.0) meq/L Anion Gap 3 L (5-15) meq/L BUN 34 H (7-18) mg/dL Creatinine 0.97 (0.60-1.30) mg/dL Estimated GFR 83 L (>89) mL/min POC Glucose 274 H 177 H (68-110) mg/dl Random Glucose 219 H (74-106) mg/dL Hemoglobin A1c (4.3-6.0) % Uric Acid (2.6-7.2) mg/dl Calcium 9.5 (8.5-10.1) mg/dL Magnesium (1.5-2.5) mg/dL Total Bilirubin (0.2-1.0) mg/dL AST (15-37) U/L ALT (12-78) U/L Alkaline Phosphatase (45-117) U/L Total Creatine Kinase (39-308) U/L Troponin I (0.02-0.05) ng/mL B-Natriuretic Peptide (0-100) pg/mL Total Protein (6.4-8.2) g/dL Albumin (3.4-5.0) g/dL Triglycerides (42-150) mg/dL Cholesterol (120-200) mg/dL LDL Cholesterol, Calc (0-99) mg/dL HDL Cholesterol (40.0-60.0) mg/dL Cholesterol/HDL Ratio Ratio 05/14/18 05/14/18 05/14/18 Range/Units 12:23 17:14 19:55 WBC (4.0-11.0) th/mm3 RBC (4.50-5.90) mil/mm3 Hgb (13.0-17.0) gm/dL Hct (39.0-51.0) % MCV (80.0-100.0) fL MCH (27.0-34.0) pg MCHC (32.0-36.0) % RDW (11.6-17.2) % Plt Count (150-450) th/mm3 MPV (7.0-11.0) fL Neut % (Auto) (16.0-70.0) % Lymph % (Auto) (9.0-44.0) % Swisher % (Auto) (0.0-8.0) % Eos % (Auto) (0.0-4.0) % Baso % (Auto) (0.0-2.0) % Neut # (Auto) (1.8-7.7) th/mm3 Lymph # (Auto) (1.0-4.8) th/mm3 Swisher # (Auto) (0.0-0.9) th/mm3 Eos # (Auto) (0.0-0.4) th/mm3 Baso # (Auto) (0.0-0.2) th/mm3 WBC Differential Differential Comment PT (9.8-11.6) sec INR Ratio APTT (23.4-31.7) sec Puncture Site Patient Temperature O2 Saturation (90-100) % ABG pH (7.380-7.420) ABG pCO2 (38-42) mmHg ABG pO2 (61-120) mmHg ABG HCO3 (22-26) mmol/L ABG O2 Content (12.0-20.0) Vol % ABG Base Excess (-2-2) mmol/L ABG Methemoglobin (0-2) % Keith Test Hemoglobin (12.0-16.0) G/DL Carboxyhemoglobin (0-4) % O2 Delivery Device Liter Flow L/M Critical Value Sodium (136-145) meq/L Potassium (3.5-5.1) meq/L Chloride (98-107) meq/L Carbon Dioxide (21.0-32.0) meq/L Anion Gap (5-15) meq/L BUN (7-18) mg/dL Creatinine (0.60-1.30) mg/dL Estimated GFR (>89) mL/min POC Glucose 183 H 236 H 218 H (68-110) mg/dl Random Glucose (74-106) mg/dL Hemoglobin A1c (4.3-6.0) % Uric Acid (2.6-7.2) mg/dl Calcium (8.5-10.1) mg/dL Magnesium (1.5-2.5) mg/dL Total Bilirubin (0.2-1.0) mg/dL AST (15-37) U/L ALT (12-78) U/L Alkaline Phosphatase (45-117) U/L Total Creatine Kinase (39-308) U/L Troponin I (0.02-0.05) ng/mL B-Natriuretic Peptide (0-100) pg/mL Total Protein (6.4-8.2) g/dL Albumin (3.4-5.0) g/dL Triglycerides (42-150) mg/dL Cholesterol (120-200) mg/dL LDL Cholesterol, Calc (0-99) mg/dL HDL Cholesterol (40.0-60.0) mg/dL Cholesterol/HDL Ratio Ratio 05/14/18 05/15/18 05/15/18 Range/Units 22:36 07:31 07:49 WBC (4.0-11.0) th/mm3 RBC (4.50-5.90) mil/mm3 Hgb (13.0-17.0) gm/dL Hct (39.0-51.0) % MCV (80.0-100.0) fL MCH (27.0-34.0) pg MCHC (32.0-36.0) % RDW (11.6-17.2) % Plt Count (150-450) th/mm3 MPV (7.0-11.0) fL Neut % (Auto) (16.0-70.0) % Lymph % (Auto) (9.0-44.0) % Swisher % (Auto) (0.0-8.0) % Eos % (Auto) (0.0-4.0) % Baso % (Auto) (0.0-2.0) % Neut # (Auto) (1.8-7.7) th/mm3 Lymph # (Auto) (1.0-4.8) th/mm3 Swisher # (Auto) (0.0-0.9) th/mm3 Eos # (Auto) (0.0-0.4) th/mm3 Baso # (Auto) (0.0-0.2) th/mm3 WBC Differential Differential Comment PT (9.8-11.6) sec INR Ratio APTT (23.4-31.7) sec Puncture Site Patient Temperature O2 Saturation (90-100) % ABG pH (7.380-7.420) ABG pCO2 (38-42) mmHg ABG pO2 (61-120) mmHg ABG HCO3 (22-26) mmol/L ABG O2 Content (12.0-20.0) Vol % ABG Base Excess (-2-2) mmol/L ABG Methemoglobin (0-2) % Keith Test Hemoglobin (12.0-16.0) G/DL Carboxyhemoglobin (0-4) % O2 Delivery Device Liter Flow L/M Critical Value Sodium 136 (136-145) meq/L Potassium 4.1 (3.5-5.1) meq/L Chloride 91 L (98-107) meq/L Carbon Dioxide 41.5 H (21.0-32.0) meq/L Anion Gap 4 L (5-15) meq/L BUN 34 H (7-18) mg/dL Creatinine 0.91 (0.60-1.30) mg/dL Estimated GFR 89 (>89) mL/min POC Glucose 220 H 142 H (68-110) mg/dl Random Glucose 136 H (74-106) mg/dL Hemoglobin A1c (4.3-6.0) % Uric Acid (2.6-7.2) mg/dl Calcium 9.0 (8.5-10.1) mg/dL Magnesium (1.5-2.5) mg/dL Total Bilirubin (0.2-1.0) mg/dL AST (15-37) U/L ALT (12-78) U/L Alkaline Phosphatase (45-117) U/L Total Creatine Kinase (39-308) U/L Troponin I (0.02-0.05) ng/mL B-Natriuretic Peptide (0-100) pg/mL Total Protein (6.4-8.2) g/dL Albumin (3.4-5.0) g/dL Triglycerides (42-150) mg/dL Cholesterol (120-200) mg/dL LDL Cholesterol, Calc (0-99) mg/dL HDL Cholesterol (40.0-60.0) mg/dL Cholesterol/HDL Ratio Ratio 11/18/18 Range/Units 12:12 WBC (4.0-11.0) th/mm3 RBC (4.50-5.90) mil/mm3 Hgb (13.0-17.0) gm/dL Hct (39.0-51.0) % MCV (80.0-100.0) fL MCH (27.0-34.0) pg MCHC (32.0-36.0) % RDW (11.6-17.2) % Plt Count (150-450) th/mm3 MPV (7.0-11.0) fL Neut % (Auto) (16.0-70.0) % Lymph % (Auto) (9.0-44.0) % Swisher % (Auto) (0.0-8.0) % Eos % (Auto) (0.0-4.0) % Baso % (Auto) (0.0-2.0) % Neut # (Auto) (1.8-7.7) th/mm3 Lymph # (Auto) (1.0-4.8) th/mm3 Swisher # (Auto) (0.0-0.9) th/mm3 Eos # (Auto) (0.0-0.4) th/mm3 Baso # (Auto) (0.0-0.2) th/mm3 WBC Differential Differential Comment PT (9.8-11.6) sec INR Ratio APTT (23.4-31.7) sec Puncture Site Patient Temperature O2 Saturation (90-100) % ABG pH (7.380-7.420) ABG pCO2 (38-42) mmHg ABG pO2 (61-120) mmHg ABG HCO3 (22-26) mmol/L ABG O2 Content (12.0-20.0) Vol % ABG Base Excess (-2-2) mmol/L ABG Methemoglobin (0-2) % Keith Test Hemoglobin (12.0-16.0) G/DL Carboxyhemoglobin (0-4) % O2 Delivery Device Liter Flow L/M Critical Value Sodium (136-145) meq/L Potassium (3.5-5.1) meq/L Chloride (98-107) meq/L Carbon Dioxide (21.0-32.0) meq/L Anion Gap (5-15) meq/L BUN (7-18) mg/dL Creatinine (0.60-1.30) mg/dL Estimated GFR (>89) mL/min POC Glucose 207 H (68-110) mg/dl Random Glucose (74-106) mg/dL Hemoglobin A1c (4.3-6.0) % Uric Acid (2.6-7.2) mg/dl Calcium (8.5-10.1) mg/dL Magnesium (1.5-2.5) mg/dL Total Bilirubin (0.2-1.0) mg/dL AST (15-37) U/L ALT (12-78) U/L Alkaline Phosphatase (45-117) U/L Total Creatine Kinase (39-308) U/L Troponin I (0.02-0.05) ng/mL B-Natriuretic Peptide (0-100) pg/mL Total Protein (6.4-8.2) g/dL Albumin (3.4-5.0) g/dL Triglycerides (42-150) mg/dL Cholesterol (120-200) mg/dL LDL Cholesterol, Calc (0-99) mg/dL HDL Cholesterol (40.0-60.0) mg/dL Cholesterol/HDL Ratio Ratio Imaging Data Radiologist's impression: Chest X-Ray 05/06/18 21:46 CONCLUSION: Minimal bibasilar atelectasis. Chest CTA 05/07/18 00:03 CONCLUSION: 1. No pulmonary emboli. 2. 6 mm nodule pulmonary nodule on the left. Current guidelines suggest a repeat CT of the chest in 6 months. Chest X-Ray 05/09/18 08:00 CONCLUSION: There are areas of atelectasis in the lung bases which are new compared to previous of 05/02/2018. Myocardial Perfusion Scan Nuc Med 05/09/18 08:00 CONCLUSION: 1. Small segment of stress-induced ischemia anterior myocardium 2. Depressed ejection fraction with inferior lateral hypokinesis. Chest X-Ray 05/12/18 07:00 CONCLUSION: Minimal bibasilar atelectatic changes. Discharge Plan Discharge Disposition Patient Disposition: 30 Still Patient Discharge Condition Condition: Stable Discharge Details Anticipated Discharge Date: 05/16/18 Discharge Comment: Followup with PCP, Dr. Park, at [facility], in 1 week or call and establish a new pcp Dr Chester Melgar at [facility] office Physicians Team ED Provider: Rosales Adair Primary Care Provider: Primary Care Physici,No Attending Provider: Romeo Taylor Other Providers: Rosales Ordaz Arjun Status ED Status: Left Department Discharge Information Discharge Date/Time: 05/07/18 05:39
[2018-05-06 22:42] LABS: Baso # (Auto) 0.1 th/mm3 (0.0-0.2); Baso % (Auto) 0.8 % (0.0-2.0); Eos # (Auto) 0.4 th/mm3 (0.0-0.4); Eos % (Auto) 4.1 % (0.0-4.0); Hematocrit 46.1 % (39.0-51.0); Hemoglobin 15.8 gm/dL (13.0-17.0); Lymph # (Auto) 2.9 th/mm3 (1.0-4.8); Lymph % (Auto) 29.4 % (9.0-44.0); Mean Corpuscular HGB Conc 34.3 % (32.0-36.0); Mean Corpuscular Hemoglobin 30.9 pg (27.0-34.0); Mean Platelet Volume 8.4 fL (7.0-11.0); Mono # (Auto) 0.7 th/mm3 (0.0-0.9); Neut # (Auto) 5.7 th/mm3 (1.8-7.7); Neut % (Auto) 58.7 % (16.0-70.0); Platelet Count 351 th/mm3 (150-450); Red Blood Count 5.12 mil/mm3 (4.50-5.90); Red Cell Distribution Width 16.1 % (11.6-17.2); White Blood Count 9.7 th/mm3 (4.0-11.0)
[2018-05-06 22:54] LABS: Alkaline Phosphatase 117 U/L (45-117)
[2018-05-06 23:34] LABS: Anion Gap 5 meq/L (5-15); Carbon Dioxide 34.2 meq/L (21.0-32.0); Chloride 92 meq/L (98-107); Potassium 4.6 meq/L (3.5-5.1)
[2018-05-06 23:35] LABS: Aspartate Aminotransferase 54 U/L (15-37); Blood Urea Nitrogen 18 mg/dL (7-18); Glomerular Filtration Rate 67 mL/min (>89); Glucose,Random 400 mg/dL (74-106); Sodium 131 meq/L (136-145); Total Protein 7.5 g/dL (6.4-8.2)
[2018-05-06 23:41] LABS: Activated Partial Thrombo Time 25.7 sec (23.4-31.7); Prothrombin Time 10.1 sec (9.8-11.6)
--- NOTE | 2018-05-07 01:26 | CT ---
EXAM DATE: 05/07/2018 1:11 AM EST AGE/SEX: 47 years / Male INDICATIONS: Shortness of breath, edema. CLINICAL DATA: This is the patient's initial encounter. Patient reports that signs and symptoms have been present for 1 day and indicates a pain score of 3/10. MEDICAL/SURGICAL HISTORY: Diabetes. Colon resection. RADIATION DOSE: 10.68 CTDI (mGy) COMPARISON: No prior exams available for comparison. TECHNIQUE: Volumetric scanning was performed using a multi-row detector CT scanner during bolus infu darcie of 74 ml Omnipaque 350 (iohexol) nonionic water-soluble contrast as a single exam dose. The fabian a was post processed with a variety of visualization algorithms including full volume maximum intensi ty projection and sliding thin slab reformation. Using automated exposure control and adjustment of t he mA and/or kV according to patient size, radiation dose was kept as low as reasonably achievable to obtain optimal diagnostic quality images. DICOM format image data is available electronically for r eview and comparison. FINDINGS: Pulmonary Arteries: No filling defects are seen in the pulmonary arteries out to the subsegmental ve ssels. The left and right pulmonary arteries are normal in diameter. Lung: No infiltrates seen. There is a 6 mm nodule associated with the major fissure on the left. Smo othly marginated. Effusion: None. Mediastinum: No evidence of mediastinal or hilar adenopathy. Other: The axilla is unremarkable. CONCLUSION: 1. No pulmonary emboli. 2. 6 mm nodule pulmonary nodule on the left. Current guidelines suggest a repeat CT of the chest i n 6 months. Electronically signed by: Bob King MD 05/07/2018 1:25 AM EST
[2018-05-07] MEDS ORDERED: Dextrose 50% in Water 50 ML Vial IV.PUSH PRN (09:37)
--- NOTE | 2018-05-07 10:04 | P.HPIM ---
History of Present Illness Primary Care Physician: [facility], Dr. Vasquez Chief Complaint: SOB BLE edema History of Present Illness: This is a 47 year old male patient with a past medical history which includes HTN, HLD, COPD, DM type 2, current tobacco use and diastolic CHF last echocardiogram in outpatient records 10/2016 showed EF of 60-65% with grade 1 diastolic dysfunction. Patient presents the emergency department for evaluation of shortness of breath and leg swelling gradually worsening over the past few weeks. Patient also endorses a history of orthopnea. Patient is unsure if he has gained weight. Patient denies changes in diet and reports he has been compliant with his home Lasix 40 mg PO daily. Denies any chest pain, fever, cough or congestion. Seen by his primary care physician who noted that the patient did have some rales and some pedal edema and sent him to the ER for further evaluation. Patient reports that his breathing and bilateral lower extremity edema have improved after the Lasix given last night. Patient continues to have 1-2+ bilateral pitting edema and discomfort/numbness. PMH: HTN, HLD, COPD, DM type 2, current tobacco use and diastolic CHF last echocardiogram in outpatient records 10/2016 showed EF of 60-65% with grade 1 diastolic dysfunction PSxH: colon rescetion with reanastomosis FMH: Mother had IA in her 60s, HTN Social history: ETOH: quit drinking 06/2017 - prior to that was a heavy ETOH user current tobacco use "a few ciggarttes a day, smoked 1 PPD from age 15 to 45 Diagnosis (1) Acute exacerbation of CHF (congestive heart failure): Medications and Allergies Allergies Allergy/AdvReac Type Severity Reaction Status Date / Time morphine Allergy Intermediate Anaphylaxis Verified 05/06/18 21:53 Home Medications Medication Instructions Recorded Confirmed Type amlodipine 5 mg PO DAILY 05/06/18 05/06/18 History fluticasone [Flovent HFA] 1 puff INHALATION Q12H PRN 05/06/18 05/06/18 History furosemide 40 mg PO DAILY 05/06/18 05/06/18 History gabapentin 400 mg PO TID 05/06/18 05/06/18 History glipizide 5 mg PO DAILY 05/06/18 05/06/18 History losartan 100 mg PO DAILY 05/06/18 05/06/18 History potassium chloride 10 meq PO DAILY 05/06/18 05/06/18 History atorvastatin [Lipitor] 20 mg PO DAILY 05/07/18 05/07/18 History Active Medications: Active Medications Acetaminophen (Tylenol) 650 mg PO Q4H PRN PRN Reason: Temp > 100.4 Al Hydroxide/Mg Hydroxide (Milk Of Maximiliano Kincaid) 30 ml PO Q12H PRN PRN Reason: Mild Constipation Amlodipine Besylate (Norvasc) 5 mg PO DAILY RAMESH Dextrose (D50w Vial) 50 ml IV.PUSH UNSCH PRN PRN Reason: PER HYPOGLYCEMIA PROTOCOL Furosemide (Lasix Inj) 40 mg IV.PUSH BID@0900,1800 RAMESH Glucagon (Glucagon Inj) 1 mg OTHER PRN PRN PRN Reason: for Hypoglycemia Protocol Insulin Aspart (Novolog Insulin Correctional Sugar Inj) 0 unit SQ ACHS RAMESH; Protocol Ondansetron HCl (Zofran Inj) 4 mg IV.PUSH Q6H PRN PRN Reason: NAUSEA OR VOMITING Senna/Docusate Sodium (Veronica-Colace) 1 tab PO BID RAMESH Sodium Chloride (Ns Flush) 2 ml IV.FLUSH UNSCH PRN PRN Reason: FLUSH AFTER USING IV ACCESS Physical Exam Vital signs: Last Vital Signs Temp 98.1 F 05/07/18 07:25 Pulse 90 05/07/18 07:25 Resp 20 05/07/18 07:25 BP 131/69 05/07/18 07:25 Pulse Ox 81 L 05/07/18 07:25 Narrative: GENERAL: This is a well-nourished, well-developed patient, in no apparent distress. CARDIOVASCULAR: Regular rate and rhythm RESPIRATORY: clear through out no wheezing rhonci or rales GASTROINTESTINAL: Abdomen soft, non-tender, nondistended. Normal active bowel sounds MUSCULOSKELETAL: Extremities without clubbing, cyanosis. 1-2+ bilateral pitting edema NEURO: Alert & Oriented x4 to person, place, time, situation. Moves all ext x4 Results Labs CBC & Chem 7: 05/08/18 06:10 05/09/18 07:11 Caprini VTE Risk Assessment Caprini VTE Risk Assessment: No/Low Risk (score <= 1) Caprini Risk Assessment Model: Point Value = 1 Point Value = 2 Point Value = 3 Point Value = 5 Age 41-60 Minor surgery BMI > 25 kg/m2 Swollen legs Varicose veins or History of unexplained or recurrent spontaneous Oral contraceptives or hormone replacement Sepsis (< 1 month) Serious lung disease, including pneumonia (< 1 month) Abnormal pulmonary function Acute myocardial infarction Congestive heart failure (< 1 month) History of inflammatory bowel disease Medical patient at bed rest Age 61-74 Arthroscopic surgery Major open surgery (> 45 min) Laparoscopic surgery (> 45 min) Malignancy Confined to bed (> 72 hours) Immobilizing plaster cast Central venous access Age >= 75 History of VTE Family history of VTE Factor V Leiden Prothrombin 37002A Lupus anticoagulant Anticardiolipin antibodies Elevated serum homocysteine Heparin-induced thrombocytopenia Other congenital or acquired thrombophilia Stroke (< 1 month) Elective arthroplasty Hip, pelvis, or leg fracture Acute spinal cord injury (< 1 month) Prophylaxis Regimen: Total Risk Factor Score Risk Level Prophylaxis Regimen 0-1 Low Early ambulation 2 Moderate Order ONE of the following: *Sequential Compression Device (SCD) *Heparin 5000 units SQ BID 3-4 Higher Order ONE of the following medications: *Heparin 5000 units SQ TID *Enoxaparin/Lovenox 40 mg SQ daily (WT < 150 kg, CrCl > 30 mL/min) *Enoxaparin/Lovenox 30 mg SQ daily (WT < 150 kg, CrCl > 10-29 mL/min) *Enoxaparin/Lovenox 30 mg SQ BID (WT < 150 kg, CrCl > 30 mL/min) AND/OR *Sequential Compression Device (SCD) 5 or more Highest Order ONE of the following medications: *Heparin 5000 units SQ TID (Preferred with Epidurals) *Enoxaparin/Lovenox 40 mg SQ daily (WT < 150 kg, CrCl > 30 mL/min) *Enoxaparin/Lovenox 30 mg SQ daily (WT < 150 kg, CrCl > 10-29 mL/min) *Enoxaparin/Lovenox 30 mg SQ BID (WT < 150 kg, CrCl > 30 mL/min) AND *Sequential Compression Device (SCD) Assessment and Plan Assessment (1) Acute exacerbation of CHF (congestive heart failure): Code(s): I50.9 - Heart failure, unspecified Status: Acute Plan This is a 47 year old male patient with a past medical history which includes HTN, HLD, COPD, DM type 2, current tobacco use and diastolic CHF last echocardiogram in outpatient records 10/2016 showed EF of 60-65% with grade 1 diastolic dysfunction. Patient presents the emergency department for evaluation of shortness of breath and leg swelling gradually worsening over the past few weeks. Patient also endorses a history of orthopnea. Patient is unsure if he has gained weight. Denies any chest pain, fever, cough or congestion. Seen by his primary care physician who noted that the patient did have some rales and some pedal edema and sent him to the ER for further evaluation. Patient reports that his breathing and bilateral lower extremity edema have improved after the Lasix given last night. Patient continues to have 1-2+ bilateral pitting edema and discomfort/numbness. Acute exacerbation of diastolic CHF echocardiogram in outpatient records 10/2016 showed EF of 60-65% with grade 1 diastolic dysfunction repeat echocardiogram Lasix 80 mg IV given in ER start Lasix 40 mg IV BID continuous laboratory monitor Chest X-Ray 05/06/18 Minimal bibasilar atelectasis. Chest CTA 05/07/18 1. No pulmonary emboli. 2. 6 mm nodule pulmonary nodule on the left. Current guidelines suggest a repeat CT of the chest in 6 months. HTN Continue patient's home amlodipine 5 mg daily and losartan 100 mg daily HLD Continue patient's home lipitor COPD Does not appear to be in acute exacerbation Duo nebs Q6H while awake and as needed add Symbicort on puff BID DM type 2 Continue patient's home glipizide 5 mg PO daily diabetic/cardiac diet accuchecks ACHS with SSI coverage Diabetic peripheral edema Continue patient's home gabapentin current tobacco Counselled encouraged to abstain Patient requesting nicotine patch DVT prophylaxis with SCDs Attending Attestation The exam, history, and the medical decision-making described in the above note were completed with the assistance of the mid-level provider. I reviewed and agree with the findings presented. I attest that I had a [id number] encounter with the patient on the same day, and personally performed and documented my assessment and findings in the medical record. Patient examined. Assessment and plan formulated with Bhavani Gomez PA-C. I agree with the above.
--- NOTE | 2018-05-07 10:09 | ECG ---
Date Performed: 05/06/2018 Time Performed: 21:25:44 PTAGE: 47 years EKG: Baseline artifact present Sinus rhythm NONSPECIFIC T-WAVE ABNORMALITY BORDERLINE ECG No significant change from prior electrocardiogram. PREVIOUS TRACING : 09/16/2014 19.33 DOCTOR: Wade Ragland Interpretating Date/Time 05/07/2018 10:08:08
[2018-05-07] MEDS ORDERED: amLODIPine 5 MG Tablet PO ONE (11:00)
[2018-05-07 11:51] LABS: Calcium 8.5 mg/dL (8.5-10.1); Carbon Dioxide 36.3 meq/L (21.0-32.0); Potassium 4.3 meq/L (3.5-5.1)
--- NOTE | 2018-05-07 13:10 | ECHRPT ---
Indication: Heart failure, unspecified CONCLUSIONS Technically very difficult study making assessment of left ventricular function and wall motion subo ptimal. Grossly, left ventricular function appears to be normal. There was limited left ventricular wall mo tion assessment due to poor endocardial visualization. Wall thickness is measured at the upper limits of normal. Normal left ventricular size. No definite significant valvular abnormalities. BP: / HR: Rhythm: Sinus MEASUREMENTS (Male / Female) Normal Values Technical Quality:Technically difficult study 2D ECHO LV Diastolic Diameter PLAX 4.6 cm 4.2 - 5.9 / 3.9 - 5.3 cm LV Systolic Diameter PLAX 3.7 cm IVS Diastolic Thickness 1.4 cm 0.6 - 1.0 / 0.6 - 0.9 cm LVPW Diastolic Thickness 1.3 cm 0.6 - 1.0 / 0.6 - 0.9 cm LV Relative Wall Thickness 0.6 LVOT Diameter 2.0 cm M-MODE Aortic Root Diameter MM 4.0 cm LA Systolic Diameter MM 3.2 cm LA Ao Ratio MM 0.8 AV Cusp Separation MM 2.1 cm DOPPLER AV Peak Velocity 102.0 cm/s AV Peak Gradient 4.2 mmHg LVOT Peak Velocity 75.5 cm/s LVOT Peak Gradient 2.3 mmHg AV Area Cont Eq pk 2.3 cm Mitral E Point Velocity 86.4 cm/s Mitral A Point Velocity 92.3 cm/s Mitral E to A Ratio 0.9 LV E' Lateral Velocity 8.4 cm/s Mitral E to LV E' Lateral Ratio 10.3 LV E' Septal Velocity 4.9 cm/s Mitral E to LV E' Septal Ratio 17.7 PV Peak Velocity 143.0 cm/s PV Peak Gradient 8.2 mmHg FINDINGS LEFT VENTRICLE Technically very difficult study making assessment of left ventricular function and wall motion subo ptimal. Grossly, left ventricular function appears to be normal. There was limited left ventricular wall mo tion assessment due to poor endocardial visualization. Wall thickness is measured at the upper limits of normal. Normal left ventricular size. RIGHT VENTRICLE The right ventricle was not well visualized. LEFT ATRIUM The left atrial size is normal. RIGHT ATRIUM The right atrial size is normal. ATRIAL SEPTUM Normal atrial septal thickness without atrial level shunting by limited color doppler interrogation. AORTA The aortic root and proximal ascending aorta are normal in size on limited imaging. MITRAL VALVE Structurally normal mitral valve. No mitral valve stenosis or regurgitation. AORTIC VALVE Trileaflet aortic valve. No aortic valve stenosis or regurgitation. TRICUSPID VALVE Structurally normal tricuspid valve. No tricuspid valve stenosis or regurgitation. PULMONARY VALVE The pulmonary valve is not well visualized. VESSELS The inferior vena cava is normal in size. PERICARDIUM No pericardial effusion. Eliud Kwon MD (Electronically Signed) Final Date:07 May 2018 13:09
[2018-05-07] MEDS: Insulin NovoLOG Aspart Correctional Sugar Inj SQ SCH ×3 (13:22→20:46)
[2018-05-07] MEDS: Gabapentin 400 MG Capsule PO SCH ×2 (14:20→18:15)
[2018-05-07] MEDS ORDERED: glipiZIDE 5 MG Tablet PO ONE (15:19)
[2018-05-07] MEDS ORDERED: LORazepam 1 MG Tablet PO PRN (15:56)
[2018-05-07] MEDS: Senna/Docusate Sodium 8.6/50 MG Tablet PO SCH (20:46)
[2018-05-07] MEDS: Budesonide-Formoterol 160/4.5 MCG 6 GM Inhaler INH SCH (20:46)
[2018-05-07] MEDS: glipiZIDE 5 MG Tablet PO SCH (20:46)
[2018-05-07] MEDS ORDERED: Temazepam 15 MG Capsule PO PRN (21:00)
[2018-05-08 06:49] LABS: Baso # (Auto) 0.1 th/mm3 (0.0-0.2); Baso % (Auto) 0.6 % (0.0-2.0); Eos # (Auto) 0.4 th/mm3 (0.0-0.4); Eos % (Auto) 3.7 % (0.0-4.0); Hematocrit 47.4 % (39.0-51.0); Lymph # (Auto) 3.1 th/mm3 (1.0-4.8); Lymph % (Auto) 29.9 % (9.0-44.0); Mean Corpuscular HGB Conc 31.7 % (32.0-36.0); Mean Corpuscular Hemoglobin 28.7 pg (27.0-34.0); Mean Corpuscular Volume 90.5 fL (80.0-100.0); Mean Platelet Volume 7.4 fL (7.0-11.0); Mono # (Auto) 0.8 th/mm3 (0.0-0.9); Mono % (Auto) 8.2 % (0.0-8.0); Neut # (Auto) 5.9 th/mm3 (1.8-7.7); Neut % (Auto) 57.6 % (16.0-70.0); Platelet Count 277 th/mm3 (150-450); Red Blood Count 5.23 mil/mm3 (4.50-5.90); Red Cell Distribution Width 15.9 % (11.6-17.2); White Blood Count 10.2 th/mm3 (4.0-11.0)
[2018-05-08 07:25] LABS: Calcium 8.5 mg/dL (8.5-10.1); Carbon Dioxide 37.5 meq/L (21.0-32.0); Potassium 3.4 meq/L (3.5-5.1)
[2018-05-08] MEDS ORDERED: glipiZIDE 5 MG Tablet PO SCH (09:00)
[2018-05-08] MEDS: Insulin NovoLOG Aspart Correctional Sugar Inj SQ SCH ×4 (09:16→20:56)
[2018-05-08] MEDS: Acetaminophen 325 MG Tablet PO PRN (09:17)
[2018-05-08] MEDS: Budesonide-Formoterol 160/4.5 MCG 6 GM Inhaler INH SCH ×2 (09:17→21:01)
[2018-05-08] MEDS: amLODIPine 5 MG Tablet PO SCH (09:18)
[2018-05-08] MEDS: Senna/Docusate Sodium 8.6/50 MG Tablet PO SCH ×2 (09:18→20:57)
[2018-05-08] MEDS: Furosemide 40 MG Tablet PO SCH (09:19)
[2018-05-08] MEDS: Gabapentin 400 MG Capsule PO SCH ×3 (09:19→17:38)
[2018-05-08] MEDS: glipiZIDE 5 MG Tablet PO SCH ×2 (09:19→20:57)
--- NOTE | 2018-05-08 16:32 | P.PNIM ---
Subjective Interval history: Pt c/o continued HANLEY Physical Exam Vital signs: Last Vital Signs Temp 98.2 F 05/08/18 15:33 Pulse 96 H 05/08/18 15:33 Resp 12 05/08/18 15:33 BP 124/72 05/08/18 15:33 Pulse Ox 90 L 05/08/18 15:33 Narrative: GENERAL: This is a well-nourished, well-developed patient, in no apparent distress. CARDIOVASCULAR: Regular rate and rhythm RESPIRATORY: clear through out no wheezing rhonci or rales GASTROINTESTINAL: Abdomen soft, non-tender, nondistended. Normal active bowel sounds MUSCULOSKELETAL: Extremities without clubbing, cyanosis. 1-2+ bilateral pitting edema NEURO: Alert & Oriented x4 to person, place, time, situation. Moves all ext x4 Results Labs CBC & Chem 7: 05/08/18 06:10 05/09/18 07:11 Assessment and Plan Assessment (1) Acute exacerbation of CHF (congestive heart failure): Code(s): I50.9 - Heart failure, unspecified Status: Acute Plan This is a 47 year old male patient with a past medical history which includes HTN, HLD, COPD, DM type 2, current tobacco use and diastolic CHF last echocardiogram in outpatient records 10/2016 showed EF of 60-65% with grade 1 diastolic dysfunction. Patient presents the emergency department for evaluation of shortness of breath and leg swelling gradually worsening over the past few weeks. Patient also endorses a history of orthopnea. Patient is unsure if he has gained weight. Denies any chest pain, fever, cough or congestion. Seen by his primary care physician who noted that the patient did have some rales and some pedal edema and sent him to the ER for further evaluation. Patient reports that his breathing and bilateral lower extremity edema have improved after the Lasix given last night. Patient continues to have 1-2+ bilateral pitting edema and discomfort/numbness. Acute exacerbation of diastolic CHF echocardiogram in outpatient records 10/2016 showed EF of 60-65% with grade 1 diastolic dysfunction repeat echocardiogram Lasix 80 mg IV given in ER start Lasix 40 mg IV BID continuous youth nutritional monitor Chest X-Ray 05/06/18 Minimal bibasilar atelectasis. Chest CTA 05/07/18 1. No pulmonary emboli. 2. 6 mm nodule pulmonary nodule on the left. Current guidelines suggest a repeat CT of the chest in 6 months. - Pt anxious about pulmonary nodule. He has 2 siblings who had cancer, so obtain repeat CT in 3 months. - repeat CXR (05/09/18) - obtain set of cardiac enzymes - case informally d/w [facility] Cardiology - obtain ivy scan - DVT prophylaxis - supportive care HTN - stable amlodipine 5mg - losartan 100mg daily HLD - continue lipitor - repeat fasting lipid panel in AM COPD Does not appear to be in acute exacerbation Duo nebs Q6H while awake and as needed - Symbicort on puff BID - anticipate pt will require home oxygen upon discharge - Pt has already been diagnosed with KEITH by Dr. Hoffman. Pt does NOT use his CPAP d/t ill fitting mask. - Pt understands that he needs to f/u with Dr. Hoffman upon discharge. DM type 2 - increase glipizide to 5mg BID - increase glucophage to 500mg BID - obtain HgA1C - SSI Diabetic peripheral neuropathy Continue patient's home gabapentin current tobacco Counselled encouraged to abstain Patient requesting nicotine patch DVT prophylaxis with SCDs
[2018-05-08 21:41] LABS: Creatine Kinase 47 U/L (39-308)
[2018-05-09] MEDS: amLODIPine 5 MG Tablet PO SCH (08:22)
[2018-05-09] MEDS: Furosemide 40 MG Tablet PO SCH (08:22)
[2018-05-09] MEDS: glipiZIDE 5 MG Tablet PO SCH ×2 (08:22→20:16)
[2018-05-09] MEDS: Gabapentin 400 MG Capsule PO SCH ×3 (08:22→18:06)
[2018-05-09] MEDS: Senna/Docusate Sodium 8.6/50 MG Tablet PO SCH ×2 (08:23→20:16)
[2018-05-09] MEDS: Budesonide-Formoterol 160/4.5 MCG 6 GM Inhaler INH SCH ×2 (08:25→20:18)
[2018-05-09] MEDS: Insulin NovoLOG Aspart Correctional Sugar Inj SQ SCH ×4 (08:26→20:16)
[2018-05-09] MEDS ORDERED: Influenza (Quadrivalent) Vaccine 0.5 ML Syringe IM ONE (09:00)
--- NOTE | 2018-05-09 09:01 | XR ---
EXAM DATE: 05/09/2018 8:57 AM EST AGE/SEX: 47 years / Male INDICATIONS: . Short of Breath CLINICAL DATA: This is the patient's initial encounter. Patient reports that signs and symptoms have been present for 1 day and indicates a pain score of 0/10. MEDICAL/SURGICAL HISTORY: . Diabetes. . Colon resection COMPARISON: [facility] [place], CHEST 1V SINGLE AP, 05/06/2018. . FINDINGS: The heart is mildly enlarged. The mediastinal contours are within normal limits. There are atelectati c changes evident within the lung bases. There is no significant pleural effusion. There is no overt congestive failure. CONCLUSION: There are areas of atelectasis in the lung bases which are new compared to previous of 05/02/2018. Electronically signed by: Umer Pantoja MD 05/09/2018 9:00 AM EST
[2018-05-09] MEDS ORDERED: Regadenoson Inj 0.4 MG/5 ML Syringe IV.PUSH ONE (09:38)
[2018-05-09 10:26] LABS: Anion Gap 8 meq/L (5-15); Blood Urea Nitrogen 20 mg/dL (7-18); Carbon Dioxide 34.1 meq/L (21.0-32.0); Chloride 94 meq/L (98-107); Glomerular Filtration Rate Greater Than 89 mL/min (>89); Glucose,Random 258 mg/dL (74-106); Potassium 3.9 meq/L (3.5-5.1); Sodium 136 meq/L (136-145)
[2018-05-09 10:28] LABS: Cholesterol 254 mg/dL (120-200)
[2018-05-09 10:31] LABS: Chol/HDL Ratio 9.58 Ratio; HDL Cholesterol 26.5 mg/dL (40.0-60.0); Triglycerides 922 mg/dL (42-150)
--- NOTE | 2018-05-09 10:59 | NM ---
EXAM DATE: 05/09/2018 10:48 AM EST AGE/SEX: 47 years / Male INDICATIONS:Angina. . Dyspnea and lower extremity swelling. CLINICAL DATA: This is the patient's initial encounter. Patient reports that signs and symptoms have been present for 1 day and indicates a pain score of 3/10. MEDICAL/SURGICAL HISTORY: Diabetes mellitus type II. Hypertension. Chronic obstructive pulmon ranjana disease. Smoker. Colon resection. COMPARISON: No prior exams available for comparison. No external comparison. DOSE: 8.5 mCi Tc 99m Myoview at rest 26.7 mCi [id number] at stress 0.4 mg Lexiscan STRESS SYMPTOMS: None. EJECTION FRACTION: 48 % TECHNIQUE: The patient underwent pharmacologic stress with infusion of prescribed dose. Continuous ECG tracing was monitored during stress. Gated SPECT imaging was performed after stress and conventi onal SPECT imaging was performed at rest. The examination was performed on a SPECT/CT scanner, both attenuation and non-corrected datasets were reviewed. FINDINGS: The best perfused myocardium is the anterior wall. Large amount of gut activity obscures inferior wal l. There is minimal redistribution in a small segment of the anterior myocardium beginning in mid wal l extending to the apex. The ejection fraction is calculated at 48% with inferior lateral hypokinesis RISK CATEGORY: Low (<1% Annual Motality Rate) CONCLUSION: 1. Small segment of stress-induced ischemia anterior myocardium 2. Depressed ejection fraction with inferior lateral hypokinesis. Electronically signed by: Bakari Pantoja MD 05/09/2018 10:58 AM EST
--- NOTE | 2018-05-09 13:42 | P.PNIM ---
Subjective Interval history: No new complaints. Physical Exam Vital signs: Last Vital Signs Temp 97.4 F L 05/09/18 08:00 Pulse 92 H 05/09/18 12:00 Resp 20 05/09/18 08:00 BP 142/73 H 05/09/18 08:00 Pulse Ox 92 L 05/09/18 11:53 Narrative: GENERAL: This is a well-nourished, well-developed patient, in no apparent distress. CARDIOVASCULAR: Regular rate and rhythm RESPIRATORY: clear through out no wheezing rhonci or rales GASTROINTESTINAL: Abdomen soft, non-tender, nondistended. Normal active bowel sounds MUSCULOSKELETAL: Extremities without clubbing, cyanosis. LE edema resolved. NEURO: Alert & Oriented x4 to person, place, time, situation. Moves all ext x4 Results Labs CBC & Chem 7: 05/08/18 06:10 05/09/18 07:11 Assessment and Plan Assessment (1) Acute exacerbation of CHF (congestive heart failure): Code(s): I50.9 - Heart failure, unspecified Status: Acute Plan This is a 47 year old male patient with a past medical history which includes HTN, HLD, COPD, DM type 2, current tobacco use and diastolic CHF last echocardiogram in outpatient records 10/2016 showed EF of 60-65% with grade 1 diastolic dysfunction. Patient presents the emergency department for evaluation of shortness of breath and leg swelling gradually worsening over the past few weeks. Patient also endorses a history of orthopnea. Patient is unsure if he has gained weight. Denies any chest pain, fever, cough or congestion. Seen by his primary care physician who noted that the patient did have some rales and some pedal edema and sent him to the ER for further evaluation. Patient reports that his breathing and bilateral lower extremity edema have improved after the Lasix given last night. Patient continues to have 1-2+ bilateral pitting edema and discomfort/numbness. Acute exacerbation of diastolic CHF echocardiogram in outpatient records 10/2016 showed EF of 60-65% with grade 1 diastolic dysfunction Lasix 80 mg IV given in ER - Lasix 40 mg IV BID --> changed to 40mg PO daily - repeat BMP/Mag in AM continuous gambling monitor Chest X-Ray 05/06/18 Minimal bibasilar atelectasis. Chest CTA 05/07/18 1. No pulmonary emboli. 2. 6 mm nodule pulmonary nodule on the left. Current guidelines suggest a repeat CT of the chest in 6 months. - Pt anxious about pulmonary nodule. He has 2 siblings who had cancer, so obtain repeat CT in 3 months. - CXR (05/09/18) --> bibasilar atelectasis - CKMB, troponin (05/08) --> WNL - Lexiscan (05/09) 1. Small segment of stress-induced ischemia anterior myocardium 2. Depressed ejection fraction with inferior lateral hypokinesis. - Consult CP Cardiology - DVT prophylaxis - supportive care HTN - stable amlodipine 5mg - losartan 100mg daily HLD - continue lipitor - Triglyceride 922. D/t uncontrolled DM - LDL could NOT be calculated d/t elevated trig - improve glycemic control & repeat fasting lipid panel in 1 month - If NO improvement in pt's triglyceride level, will need to start tricor/lopid COPD Does not appear to be in acute exacerbation Duo nebs Q6H while awake and as needed - Symbicort on puff BID - anticipate pt will require home oxygen upon discharge - Pt has already been diagnosed with KEITH by Dr. Hoffman. Pt does NOT use his CPAP d/t ill fitting mask. - Pt understands that he needs to f/u with Dr. Hoffman upon discharge. DM type 2 - glipizide to 5mg BID - increase glucophage to 1000mg BID - HgA1C --> pending - SSI - consult religious educator Diabetic peripheral neuropathy Continue patient's home gabapentin current tobacco Counselled encouraged to abstain Patient requesting nicotine patch DVT prophylaxis with SCDs Progress Note: Quality VTE Deep Vein Thrombosis/Pulmonary Embolism Present on Admission: No
[2018-05-09 16:22] LABS: Hemoglobin A1c 14.3 % (4.3-6.0)
[2018-05-09] MEDS: Acetaminophen 325 MG Tablet PO PRN (22:03)
--- NOTE | 2018-05-10 08:11 | P.CONCA ---
History of Present Illness Primary Care Provider: No Primary Care Physician Chief Complaint: SOB BLE edema History of Present Illness: 47-year-old male with a past medical history of HTN, HLD, DM, COPD, CHF who presented with shortness of breath and leg swelling. The patient states that over the past several days to weeks he has been having increasing leg swelling, shortness of breath, and 20 pound weight gain which prompted him to come to the hospital. He reports compliance with medications at home. Chest x-ray to admission suggested bibasilar atelectasis. He was given IV Lasix and reports good urine output. He reports his legs are still swollen however and he is unable to lay flat due to shortness of breath. Echocardiogram was performed which was a poor quality study but suggested normal ejection fraction. He denies any chest pain and his EKG did not show any specific ischemic changes. A Lexiscan was performed which suggested a small area of anterior ischemia, lateral hypokinesis, and EF 48%. He continues to smoke but reports he is cutting back. Admits to poor diet. Review of Systems All other systems reviewed negative except as stated in HPI PMFSH - History History Provided By: Patient, Medical Record - Medical History Medical History: Medical History (Last Updated 05/10/18 @ 08:01 by POLA Mcghee) CHF (congestive heart failure) COPD (chronic obstructive pulmonary disease) Diabetes HLD (hyperlipidemia) HTN (hypertension) - Surgical History Surgical History: Surgical History (Last Updated 05/06/18 @ 21:29 by Jennifer Fischer) History of colon resection - Social History I have reviewed the patient's Social History: Yes - Tobacco History Second Hand Smoke Exposure: Yes Tobacco Use In Past 30 Days: No Smoking Status: Current every day smoker Tobacco Type: Cigarettes - Alcohol History How Often Do You Have a Drink Containing Alcohol: Never - Substance Use History Substance History: No History of Abuse - Travel History Recent Travel in the [place] Within the Last 8 Weeks: No Recent Travel Out of the Country Within the Last 8 Weeks: No - Immunization History Tetanus Immunization: Unsure Hx Influenza Vaccine This Season: No Medications and Allergies Allergies Allergy/AdvReac Type Severity Reaction Status Date / Time morphine Allergy Intermediate Anaphylaxis Verified 05/06/18 21:53 Home Medications Medication Instructions Recorded Confirmed Type amlodipine 5 mg PO DAILY 05/06/18 05/06/18 History fluticasone [Flovent HFA] 1 puff INHALATION Q12H PRN 05/06/18 05/06/18 History furosemide 40 mg PO DAILY 05/06/18 05/06/18 History gabapentin 400 mg PO TID 05/06/18 05/06/18 History glipizide 5 mg PO DAILY 05/06/18 05/06/18 History losartan 100 mg PO DAILY 05/06/18 05/06/18 History potassium chloride 10 meq PO DAILY 05/06/18 05/06/18 History atorvastatin [Lipitor] 20 mg PO DAILY 05/07/18 05/07/18 History Active Medications: Active Medications Acetaminophen (Tylenol) 650 mg PO Q4H PRN PRN Reason: Temp > 100.4 Last Admin: 05/09/18 22:03 Dose: 650 mg Hydrocodone Bitart/Acetaminophen ([place] 7.5/325) 1 tab PO Q4H PRN PRN Reason: pain 1 - 10 Last Admin: 05/10/18 03:09 Dose: 1 tab Al Hydroxide/Mg Hydroxide (Milk Of Affinitymanuel Kincaid) 30 ml PO Q12H PRN PRN Reason: Mild Constipation Albuterol (Duoneb Neb (Prn)) 1 ampul NEB Q4HR NEB PRN PRN Reason: SHORTNESS OF BREATH/WHEEZING Albuterol (Duoneb Neb (Jolly)) 1 ampul NEB Q6HR NEB JOLLY Last Admin: 05/10/18 07:41 Dose: 1 ampul Amlodipine Besylate (Norvasc) 5 mg PO DAILY [facility] Last Admin: 05/09/18 08:22 Dose: 5 mg Aspirin (Ecotrin) 81 mg PO DAILY [facility] Atorvastatin Calcium (Lipitor) 20 mg PO DAILY [facility] Last Admin: 05/09/18 08:22 Dose: 20 mg Budesonide/Formoterol Fumarate (Symbicort 160/4.5 Mcg Inh) 1 puff INH BID [facility] Last Admin: 05/09/18 20:18 Dose: 1 puff Dextrose (D50w Vial) 50 ml IV.PUSH UNSCH PRN PRN Reason: PER HYPOGLYCEMIA PROTOCOL Flumazenil (Romazecon Inj) 0.2 mg IV.PUSH Q1M PRN PRN Reason: OVERSEDATION Furosemide (Lasix Inj) 40 mg IV.PUSH BID@0900,1800 [facility] Gabapentin (Neurontin) 400 mg PO TID [facility] Last Admin: 05/09/18 18:06 Dose: 400 mg Glipizide (Glucotrol) 5 mg PO BID [facility] Last Admin: 05/09/18 20:16 Dose: 5 mg Glucagon (Glucagon Inj) 1 mg OTHER PRN PRN PRN Reason: for Hypoglycemia Protocol Insulin Aspart (Novolog Insulin Correctional Sugar Inj) 0 unit SQ ACHS [facility]; Protocol Last Admin: 05/09/18 20:16 Dose: 4 unit Lorazepam (Ativan) 1 mg PO Q4H PRN PRN Reason: for CIWA 8-10 Lorazepam (Ativan Inj) 2 mg IV.PUSH Q2H PRN PRN Reason: for CIWA 11-14 Lorazepam (Ativan Inj) 2 mg IV.PUSH Q1H PRN PRN Reason: for CIWA 15-20 Lorazepam (Ativan Inj) 2 mg IV.PUSH Q15M PRN PRN Reason: for CIWA > 20 Lorazepam (Ativan Inj) 1 mg IV.PUSH Q4H PRN PRN Reason: for CIWA 8-10 Lorazepam (Ativan) 2 mg PO Q2H PRN PRN Reason: for CIWA 11-14 Losartan Potassium (Cozaar) 100 mg PO DAILY [facility] Last Admin: 05/09/18 08:22 Dose: 100 mg [facility] ([facility]) [facility] Last Admin: 05/09/18 18:06 Dose: 1,000 mg Nicotine (Habitrol 14 Mg Patch.24 Hr) 1 patch T-DERMAL DAILY [facility] Last Admin: 05/09/18 08:22 Dose: 1 patch Ondansetron HCl (Zofran Inj) 4 mg IV.PUSH Q6H PRN PRN Reason: NAUSEA OR VOMITING Patch Removal (Remove Old Patch) 1 each T-DERMAL HS [facility] Last Admin: 05/09/18 20:18 Dose: 1 each Potassium Chloride (Klor-Con 10) 10 meq PO DAILY [facility] Last Admin: 05/09/18 08:22 Dose: 10 meq Senna/Docusate Sodium (Veronica-Colace) 1 tab PO BID [facility] Last Admin: 05/09/18 20:16 Dose: 1 tab Sodium Chloride (Ns Flush) 2 ml IV.FLUSH UNSCH PRN PRN Reason: FLUSH AFTER USING IV ACCESS Last Admin: 11/11/18 20:58 Dose: 2 ml Temazepam (Restoril) 15 mg PO HS PRN PRN Reason: INSOMNIA/MAY REPEAT X1 DOSE Exam Vital signs: Vital Signs 05/09/18 08:00 05/09/18 11:53 05/09/18 12:00 Temperature 97.4 F L 97.8 F Pulse Rate 91 H 91 H Respiratory Rate 20 20 Blood Pressure 142/73 H 117/77 Pulse Oximetry 91 L 92 L 94 L 05/09/18 15:49 05/09/18 16:00 05/09/18 20:00 Temperature 97.9 F 98.7 F Pulse Rate 95 H 90 86 Respiratory Rate 18 20 20 Blood Pressure 114/62 112/70 Pulse Oximetry 95 92 L 05/09/18 21:03 05/10/18 00:00 05/10/18 03:02 Temperature 98.6 F Pulse Rate 80 106 H 92 H Respiratory Rate 16 22 22 Blood Pressure 142/73 H Pulse Oximetry 95 92 L 92 L 05/10/18 04:00 05/10/18 07:43 Temperature 97.5 F L Pulse Rate 95 H 80 Respiratory Rate 20 16 Blood Pressure 111/63 Pulse Oximetry 90 L 94 L Intake & Output 05/09/18 05/10/18 05/10/18 18:59 06:59 18:59 Intake Total 600 / 600 Balance 600 / 600 Weight 222 lb 0.088 oz Intake: Oral 600 / 600 Other: # Voids 2 2 Date of Last Bowel Movement 05/08/18 05/08/18 # Bowel Movements 1 Narrative: GENERAL: Well-developed well-nourished. Obese. Sitting up straight in bed and appears mildly dyspneic. NECK: No carotid bruits. + JVD. CARDIOVASCULAR: Regular rate and rhythm. No murmur appreciated. RESPIRATORY: No accessory muscle use. Diminished breath sounds in the bases and occasional expiratory wheeze. MUSCULOSKELETAL: No clubbing or cyanosis. 3+ tense edema. NEUROLOGICAL: Awake and alert. Normal speech. Results 05/08/18 06:10 05/09/18 07:11 Cardiac Enzymes 05/08/18 Range/Units 06:10 Troponin I Less than 0.02 L (0.02-0.05) ng/mL Lipids 05/09/18 Range/Units 07:11 Triglycerides 922 H (42-150) mg/dL Cholesterol 254 H (120-200) mg/dL HDL Cholesterol 26.5 L (40.0-60.0) mg/dL Cholesterol/HDL Ratio 9.58 Ratio Comprehensive Metabolic Panel 05/09/18 Range/Units 07:11 Sodium 136 (136-145) meq/L Potassium 3.9 (3.5-5.1) meq/L Chloride 94 L (98-107) meq/L Carbon Dioxide 34.1 H (21.0-32.0) meq/L BUN 20 H (7-18) mg/dL Creatinine 0.82 (0.60-1.30) mg/dL Calcium 9.0 (8.5-10.1) mg/dL Intake and Output 05/09/18 05/10/18 05/10/18 22:59 06:59 14:59 Intake Total 600 / 600 Balance 600 / 600 Intake: Oral 600 / 600 Other: # Voids 2 2 Date of Last Bowel Movement 05/08/18 # Bowel Movements 1 Weight 222 lb 0.088 oz - Imaging and Cardiology Imaging: Impressions Chest X-Ray 05/09/18 08:00 CONCLUSION: There are areas of atelectasis in the lung bases which are new compared to previous of 05/02/2018. Myocardial Perfusion Scan Nuc Med 05/09/18 08:00 CONCLUSION: 1. Small segment of stress-induced ischemia anterior myocardium 2. Depressed ejection fraction with inferior lateral hypokinesis. Assessment and Plan - Plan 47-year-old male with a past medical history of HTN, HLD, DM, COPD, diastolic CHF who presented with shortness of breath, leg swelling, weight gain. Acute exacerbation of chronic diastolic CHF: Change from home oral Lasix dose to IV 40 mg twice daily for now. Monitor intake output, electrolytes, and renal function. CAD: Lexiscan performed with no high risk findings. Medical management for now , start aspirin, continue statin. Hyperlipidemia: Continue atorvastatin 20 mg. With triglycerides 900s, will start fenofibrate. Morbid obesity with uncontrolled diabetes: A1c 14. BMI greater than 35. staff educator and dietitian consulted. Encouraged lifestyle modifications for weight loss. Tobacco abuse: Strongly recommended cessation. Discussed Condition With: Patient, Dr. Ordaz - Attending Attestation acute on chronic diastolic congestive heart failure NYHA Class III symptoms lexiscan unremarkable EF 50% medical mgt. no LHC. needs aggressive diuresis. monitor Cr and electrolytes. DC amlodipine start low dose ACEi
[2018-05-10] MEDS: Insulin NovoLOG Aspart Correctional Sugar Inj SQ SCH ×4 (09:06→20:43)
[2018-05-10] MEDS: Lisinopril 5 MG Tablet PO SCH (09:09)
[2018-05-10] MEDS: Fenofibrate 145 MG Tablet PO SCH (09:09)
[2018-05-10] MEDS: Gabapentin 400 MG Capsule PO SCH ×3 (09:10→18:17)
[2018-05-10] MEDS: Senna/Docusate Sodium 8.6/50 MG Tablet PO SCH ×2 (09:10→20:43)
[2018-05-10] MEDS: glipiZIDE 5 MG Tablet PO SCH ×2 (09:10→20:43)
[2018-05-10] MEDS: Budesonide-Formoterol 160/4.5 MCG 6 GM Inhaler INH SCH ×2 (09:13→20:45)
--- NOTE | 2018-05-10 15:32 | P.PNIM ---
Subjective Interval history: No new complaints. Hoping for discharge 05/11/18 Physical Exam Vital signs: Last Vital Signs Temp 98.1 F 05/10/18 12:00 Pulse 89 05/10/18 12:00 Resp 18 05/10/18 12:00 BP 126/70 05/10/18 12:00 Pulse Ox 95 05/10/18 12:00 Narrative: GENERAL: This is a well-nourished, well-developed patient, in no apparent distress. CARDIOVASCULAR: Regular rate and rhythm RESPIRATORY: clear through out no wheezing rhonci or rales GASTROINTESTINAL: Abdomen soft, non-tender, nondistended. Normal active bowel sounds MUSCULOSKELETAL: Extremities without clubbing, cyanosis. LE edema resolved. NEURO: Alert & Oriented x4 to person, place, time, situation. Moves all ext x4 Results Labs CBC & Chem 7: 05/08/18 06:10 05/09/18 07:11 Assessment and Plan Assessment (1) Acute exacerbation of CHF (congestive heart failure): Code(s): I50.9 - Heart failure, unspecified Status: Acute Plan This is a 47 year old male patient with a past medical history which includes HTN, HLD, COPD, DM type 2, current tobacco use and diastolic CHF last echocardiogram in outpatient records 10/2016 showed EF of 60-65% with grade 1 diastolic dysfunction. Patient presents the emergency department for evaluation of shortness of breath and leg swelling gradually worsening over the past few weeks. Patient also endorses a history of orthopnea. Patient is unsure if he has gained weight. Denies any chest pain, fever, cough or congestion. Seen by his primary care physician who noted that the patient did have some rales and some pedal edema and sent him to the ER for further evaluation. Patient reports that his breathing and bilateral lower extremity edema have improved after the Lasix given last night. Patient continues to have 1-2+ bilateral pitting edema and discomfort/numbness. Acute exacerbation of diastolic CHF echocardiogram in outpatient records 10/2016 showed EF of 60-65% with grade 1 diastolic dysfunction Lasix 80 mg IV given in ER - Lasix 40 mg IV BID --> changed to 40mg PO daily - repeat BMP/Mag in AM continuous shelter monitor Chest X-Ray 05/06/18 Minimal bibasilar atelectasis. Chest CTA 05/07/18 1. No pulmonary emboli. 2. 6 mm nodule pulmonary nodule on the left. Current guidelines suggest a repeat CT of the chest in 6 months. - Pt anxious about pulmonary nodule. He has 2 siblings who had cancer, so obtain repeat CT in 3 months. - CXR (05/09/18) --> bibasilar atelectasis - CKMB, troponin (05/08) --> WNL - Lexiscan (05/09) 1. Small segment of stress-induced ischemia anterior myocardium 2. Depressed ejection fraction with inferior lateral hypokinesis. - Appreciate input from [facility] Cardiology - IV lasix - anticipate d/c to home 05/11/18 - DVT prophylaxis - supportive care HTN - stable amlodipine 5mg - losartan 100mg daily HLD - continue lipitor - Triglyceride 922. D/t uncontrolled DM - LDL could NOT be calculated d/t elevated trig - improve glycemic control & repeat fasting lipid panel in 1 month - If NO improvement in pt's triglyceride level, will need to start tricor/lopid COPD Does not appear to be in acute exacerbation Duo nebs Q6H while awake and as needed - Symbicort on puff BID - anticipate pt will require home oxygen upon discharge - Pt has already been diagnosed with KEITH by Dr. Hoffman. Pt does NOT use his CPAP d/t ill fitting mask. - Pt understands that he needs to f/u with Dr. Hoffman upon discharge. DM type 2 - glipizide to 5mg BID - increase glucophage to 1000mg BID - HgA1C --> 14.3 (05/08/18) - SSI - consult prosthodontist/educator Diabetic peripheral neuropathy Continue patient's home gabapentin current tobacco Counselled encouraged to abstain Patient requesting nicotine patch DVT prophylaxis with SCDs Progress Note: Quality VTE Deep Vein Thrombosis/Pulmonary Embolism Present on Admission: No
[2018-05-11 06:44] LABS: Anion Gap 5 meq/L (5-15); Blood Urea Nitrogen 21 mg/dL (7-18); Calcium 8.1 mg/dL (8.5-10.1); Carbon Dioxide 37.5 meq/L (21.0-32.0); Chloride 94 meq/L (98-107); Glomerular Filtration Rate Greater Than 89 mL/min (>89); Glucose,Random 227 mg/dL (74-106); Magnesium 2.4 mg/dL (1.5-2.5); Potassium 4.2 meq/L (3.5-5.1); Sodium 136 meq/L (136-145)
[2018-05-11] MEDS: Insulin NovoLOG Aspart Correctional Sugar Inj SQ SCH ×4 (08:01→20:42)
[2018-05-11] MEDS: Senna/Docusate Sodium 8.6/50 MG Tablet PO SCH ×2 (08:02→20:41)
[2018-05-11] MEDS: Lisinopril 5 MG Tablet PO SCH (08:04)
--- NOTE | 2018-05-11 08:04 | P.PNCA ---
Subjective Interval history: Still unable to lie flat today due to dyspnea. Did not notice any increase in urine output with IV Lasix. I's and O's not collected, discussed with nursing. Medications and Allergies Allergies Allergy/AdvReac Type Severity Reaction Status Date / Time morphine Allergy Intermediate Anaphylaxis Verified 05/06/18 21:53 Home Medications Medication Instructions Recorded Confirmed Type amlodipine 5 mg PO DAILY 05/06/18 05/06/18 History fluticasone [Flovent HFA] 1 puff INHALATION Q12H PRN 05/06/18 05/06/18 History furosemide 40 mg PO DAILY 05/06/18 05/06/18 History gabapentin 400 mg PO TID 05/06/18 05/06/18 History glipizide 5 mg PO DAILY 05/06/18 05/06/18 History losartan 100 mg PO DAILY 05/06/18 05/06/18 History potassium chloride 10 meq PO DAILY 05/06/18 05/06/18 History atorvastatin [Lipitor] 20 mg PO DAILY 05/07/18 05/07/18 History Active Medications: Active Medications Acetaminophen (Tylenol) 650 mg PO Q4H PRN PRN Reason: Temp > 100.4 Last Admin: 05/09/18 22:03 Dose: 650 mg Hydrocodone Bitart/Acetaminophen ([place] 7.5/325) 1 tab PO Q4H PRN PRN Reason: pain 1 - 10 Last Admin: 05/11/18 03:04 Dose: 1 tab Al Hydroxide/Mg Hydroxide (Milk Of Maximiliano Kincaid) 30 ml PO Q12H PRN PRN Reason: Mild Constipation Last Admin: 05/10/18 15:50 Dose: 30 ml Albuterol (Duoneb Neb (Prn)) 1 ampul NEB Q4HR NEB PRN PRN Reason: SHORTNESS OF BREATH/WHEEZING Albuterol (Duoneb Neb (Jolly)) 1 ampul NEB Q6HR NEB JOLLY Last Admin: 05/11/18 02:54 Dose: 1 ampul Aspirin (Ecotrin) 81 mg PO DAILY [facility] Last Admin: 05/10/18 09:09 Dose: 81 mg Atorvastatin Calcium (Lipitor) 20 mg PO DAILY [facility] Last Admin: 05/10/18 09:10 Dose: 20 mg Budesonide/Formoterol Fumarate (Symbicort 160/4.5 Mcg Inh) 1 puff INH BID [facility] Last Admin: 05/10/18 20:45 Dose: 1 puff Dextrose (D50w Vial) 50 ml IV.PUSH UNSCH PRN PRN Reason: PER HYPOGLYCEMIA PROTOCOL Fenofibrate (Tricor) 145 mg PO DAILY [facility] Last Admin: 05/10/18 09:09 Dose: 145 mg Flumazenil (Romazecon Inj) 0.2 mg IV.PUSH Q1M PRN PRN Reason: OVERSEDATION Furosemide (Lasix Inj) 40 mg IV.PUSH BID@0900,1800 [facility] Last Admin: 05/10/18 18:18 Dose: 40 mg Gabapentin (Neurontin) 400 mg PO TID [facility] Last Admin: 05/10/18 18:17 Dose: 400 mg Glipizide (Glucotrol) 5 mg PO BID [facility] Last Admin: 05/10/18 20:43 Dose: 5 mg Glucagon (Glucagon Inj) 1 mg OTHER PRN PRN PRN Reason: for Hypoglycemia Protocol Insulin Aspart (Novolog Insulin Correctional Sugar Inj) 0 unit SQ ACHS [facility]; Protocol Last Admin: 05/10/18 20:43 Dose: 7 unit Lisinopril (Prinivil) 2.5 mg PO DAILY [facility] Last Admin: 05/10/18 09:09 Dose: 2.5 mg Lorazepam (Ativan) 1 mg PO Q4H PRN PRN Reason: for CIWA 8-10 Lorazepam (Ativan Inj) 2 mg IV.PUSH Q2H PRN PRN Reason: for CIWA 11-14 Lorazepam (Ativan Inj) 2 mg IV.PUSH Q1H PRN PRN Reason: for CIWA 15-20 Lorazepam (Ativan Inj) 2 mg IV.PUSH Q15M PRN PRN Reason: for CIWA > 20 Lorazepam (Ativan Inj) 1 mg IV.PUSH Q4H PRN PRN Reason: for CIWA 8-10 Lorazepam (Ativan) 2 mg PO Q2H PRN PRN Reason: for CIWA 11-14 Losartan Potassium (Cozaar) 100 mg PO DAILY [facility] Last Admin: 05/10/18 09:10 Dose: 100 mg Metformin HCl (Glucophage) 1,000 mg PO BIDPC [facility] Last Admin: 05/10/18 18:17 Dose: 1,000 mg Miscellaneous (Pill Splitter) 1 each OTHER DAILY [facility] Last Admin: 05/10/18 09:10 Dose: 1 each Nicotine (Habitrol 14 Mg Patch.24 Hr) 1 patch T-DERMAL DAILY [facility] Last Admin: 05/10/18 09:11 Dose: 1 patch Ondansetron HCl (Zofran Inj) 4 mg IV.PUSH Q6H PRN PRN Reason: NAUSEA OR VOMITING Patch Removal (Remove Old Patch) 1 each T-DERMAL HS [facility] Last Admin: 05/10/18 20:44 Dose: 1 each Potassium Chloride (Klor-Con 10) 10 meq PO DAILY [facility] Last Admin: 05/10/18 09:10 Dose: 10 meq Senna/Docusate Sodium (Veronica-Colace) 1 tab PO BID [facility] Last Admin: 05/10/18 20:43 Dose: 1 tab Sodium Chloride (Ns Flush) 2 ml IV.FLUSH UNSCH PRN PRN Reason: FLUSH AFTER USING IV ACCESS Last Admin: 05/08/18 20:58 Dose: 2 ml Temazepam (Restoril) 15 mg PO HS PRN PRN Reason: INSOMNIA/MAY REPEAT X1 DOSE Physical Exam Vital signs: Vital Signs 05/10/18 12:00 05/10/18 16:00 05/10/18 16:55 Temperature 98.1 F 98 F Pulse Rate 89 100 H 90 Respiratory Rate 18 20 24 Blood Pressure 126/70 122/74 Pulse Oximetry 95 96 Pulse Oximetry [Resting on Room Air] 86 L 05/10/18 20:00 05/10/18 20:53 05/11/18 00:00 Temperature 98.5 F 98.6 F Pulse Rate 89 88 84 Respiratory Rate 18 17 18 Blood Pressure 138/89 123/82 Pulse Oximetry 97 94 L Pulse Oximetry [Resting on Room Air] 05/11/18 02:54 05/11/18 04:00 Temperature 97.4 F L Pulse Rate 90 93 H Respiratory Rate 17 18 Blood Pressure 123/72 Pulse Oximetry 93 L Pulse Oximetry [Resting on Room Air] Intake & Output 05/10/18 05/11/18 05/11/18 18:59 06:59 18:59 Intake Total 720 / 720 Balance 720 / 720 Weight 216 lb 4.375 oz Intake: Oral 720 / 720 Other: # Voids 3 2 Date of Last Bowel Movement 05/08/18 # Bowel Movements 1 Narrative: GENERAL: Well-developed well-nourished. Obese. Sleeping above 45 degree angle upon arrival. NECK: No carotid bruits. + JVD. CARDIOVASCULAR: Regular rate and rhythm. No murmur appreciated. RESPIRATORY: No accessory muscle use. Clear to auscultation bilaterally. MUSCULOSKELETAL: No clubbing or cyanosis. 3+ edema. NEUROLOGICAL: Awake and alert. Normal speech. Results 05/08/18 06:10 05/11/18 04:57 Cardiac Enzymes 05/11/18 Range/Units 04:57 B-Natriuretic Peptide 16 (0-100) pg/mL Coagulation 05/11/18 Range/Units 04:57 B-Natriuretic Peptide 16 (0-100) pg/mL Lipids 05/09/18 Range/Units 07:11 Triglycerides 922 H (42-150) mg/dL Cholesterol 254 H (120-200) mg/dL HDL Cholesterol 26.5 L (40.0-60.0) mg/dL Cholesterol/HDL Ratio 9.58 Ratio Comprehensive Metabolic Panel 05/09/18 05/11/18 Range/Units 07:11 04:57 Sodium 136 136 (136-145) meq/L Potassium 3.9 4.2 (3.5-5.1) meq/L Chloride 94 L 94 L (98-107) meq/L Carbon Dioxide 34.1 H 37.5 H (21.0-32.0) meq/L BUN 20 H 21 H (7-18) mg/dL Creatinine 0.82 0.85 (0.60-1.30) mg/dL Calcium 9.0 8.1 L D (8.5-10.1) mg/dL Intake and Output 05/10/18 05/11/18 05/11/18 22:59 06:59 14:59 Intake Total 720 / 720 Balance 720 / 720 Intake: Oral 720 / 720 Other: # Voids 3 2 Date of Last Bowel Movement 05/08/18 # Bowel Movements 1 Weight 216 lb 4.375 oz - Imaging and Cardiology Imaging: Impressions Chest X-Ray 05/09/18 08:00 CONCLUSION: There are areas of atelectasis in the lung bases which are new compared to previous of 05/02/2018. Myocardial Perfusion Scan Nuc Med 05/09/18 08:00 CONCLUSION: 1. Small segment of stress-induced ischemia anterior myocardium 2. Depressed ejection fraction with inferior lateral hypokinesis. Assessment and Plan - Plan 47-year-old male with a past medical history of HTN, HLD, DM, COPD, diastolic CHF who presented with shortness of breath, leg swelling, weight gain. Acute exacerbation of chronic diastolic CHF: NYHA Class III symptoms. Increase IV Lasix 40 mg to 3 times daily. DC potassium supplement and add spironolactone 25 mg daily. Give metolazone 2.5 mg x1. Continue ARB, DC duplicate ACEi. Monitor strict intake and output, electrolytes, and renal function. CAD: Lexiscan performed with no high risk findings. Medical management for now , start aspirin, continue statin. Hyperlipidemia: Continue atorvastatin 20 mg. With triglycerides 900s, started fenofibrate. Morbid obesity with uncontrolled diabetes: A1c 14. BMI greater than 35. para educator and dietitian consulted. Encouraged lifestyle modifications for weight loss. Tobacco abuse: Strongly recommended cessation. Discussed Condition With: Patient, RN, Dr. Ordaz, Dr. Melgar - Attending Attestation Patient seen and examined. Agree with assessment and plan as above. Patient is also wheezing and may benefit from aggressive bronchodilator therapy.
[2018-05-11] MEDS: Gabapentin 400 MG Capsule PO SCH ×3 (08:05→18:02)
[2018-05-11] MEDS: Fenofibrate 145 MG Tablet PO SCH (08:05)
[2018-05-11] MEDS: glipiZIDE 5 MG Tablet PO SCH ×2 (08:06→20:41)
[2018-05-11] MEDS: Budesonide-Formoterol 160/4.5 MCG 6 GM Inhaler INH SCH ×2 (08:08→20:42)
[2018-05-11] MEDS: Spironolactone 25 MG Tablet PO SCH (09:29)
--- NOTE | 2018-05-11 12:10 | P.PNIM ---
Subjective Interval history: Pt is having more swelling today in the bilateral LE He is on 3-4L of supplemental O2 BS are still running high He complains of a headache which he feels is related to lack of caffeine. He was drinking mostly Mountain Dew ans sweet tea at home. Physical Exam Vital signs: Last Vital Signs Temp 97.9 F 05/11/18 08:00 Pulse 86 05/11/18 09:55 Resp 20 05/11/18 09:55 BP 127/77 05/11/18 08:00 Pulse Ox 83 L 05/11/18 10:00 Narrative: General: NAD, AAOx3 Chest: Crackles right lung base Cardiac: Regular Abd: +BS, soft ND/NT Ext: Bilateral LE edema, R>L Results Labs CBC & Chem 7: 05/08/18 06:10 05/11/18 04:57 Imaging Chest X-Ray 05/06/18 21:46 CONCLUSION: Minimal bibasilar atelectasis. Chest CTA 05/07/18 00:03 CONCLUSION: 1. No pulmonary emboli. 2. 6 mm nodule pulmonary nodule on the left. Current guidelines suggest a repeat CT of the chest in 6 months. Chest X-Ray 05/09/18 08:00 CONCLUSION: There are areas of atelectasis in the lung bases which are new compared to previous of 05/02/2018. Myocardial Perfusion Scan Nuc Med 05/09/18 08:00 CONCLUSION: 1. Small segment of stress-induced ischemia anterior myocardium 2. Depressed ejection fraction with inferior lateral hypokinesis. Assessment and Plan Plan This is a 47 year old male patient with a past medical history which includes HTN, HLD, COPD, DM type 2, current tobacco use and diastolic CHF last echocardiogram in outpatient records 10/2016 showed EF of 60-65% with grade 1 diastolic dysfunction. Patient presents the emergency department for evaluation of shortness of breath and leg swelling gradually worsening over the past few weeks. Patient also endorses a history of orthopnea. Patient is unsure if he has gained weight. Denies any chest pain, fever, cough or congestion. Seen by his primary care physician who noted that the patient did have some rales and some pedal edema and sent him to the ER for further evaluation. Acute exacerbation of diastolic CHF - Outpt 2D echocardiogram from 10/2016 showed EF of 60-65% with grade 1 diastolic dysfunction - Pt was given Lasix 80 mg IV given in ER - He had been continued on Lasix 40 mg IV BID - Chest X-Ray (05/06/18) -->Minimal bibasilar atelectasis. - Chest CTA (05/07/18) 1. No pulmonary emboli. 2. 6 mm nodule pulmonary nodule on the left. Current guidelines suggest a repeat CT of the chest in 6 months. - Pt anxious about pulmonary nodule. He has 2 siblings who had cancer, so obtain repeat CT in 3 months. - Repeat CXR (05/09/18) --> bibasilar atelectasis - CKMB, troponin (05/08) --> WNL - Lexiscan (05/09/18) 1. Small segment of stress-induced ischemia anterior myocardium 2. Depressed ejection fraction with inferior lateral hypokinesis. - Appreciate input from [facility] Cardiology - On 05/11/18 pt had noted increased LE edema. Lasix was increased to 40mg IV TID and Aldactone 25mg po daily was added a long with a dose of Metolazone by Cardiology. - Monitor I&Os closely - Repeat labs in AM - DVT prophylaxis - supportive care HTN - stable on amlodipine 5mg and losartan 100mg daily HLD - continue Lipitor - Triglyceride 922. D/t uncontrolled DM - LDL could NOT be calculated d/t elevated trig - improve glycemic control & repeat fasting lipid panel in 1 month - Tricor 145mg po daily added on 05/10 COPD - Does not appear to be in acute exacerbation - Duo nebs Q6H while awake and as needed - Symbicort on puff BID - anticipate pt will require home oxygen upon discharge - Pt has already been diagnosed with KEITH by Dr. Hoffman. - Pt does NOT use his CPAP d/t ill fitting mask. - Pt understands that he needs to f/u with Dr. Hoffman upon discharge. - Pt is requesting evaluation from Pulmonology for the lung nodule and hx of COPD DM type 2 - Glipizide increased to 5mg BID - Glucophage increased to 1000mg BID - Add Levemir 10 units HS today - HgA1C --> 14.3 (05/08/18) - SSI - consult community nutrition educator Diabetic peripheral neuropathy - Continue patient's home gabapentin Current tobacco user - Counselled encouraged to abstain - Patient requesting nicotine patch DVT prophylaxis with SCDs Progress Note: Quality VTE Deep Vein Thrombosis/Pulmonary Embolism Present on Admission: No
--- NOTE | 2018-05-11 16:36 | P.DIET ---
Nutritional Evaluation Screening comments: MDC for Diabetic Diet Education acknowledged. Pt unavailable to instruct when visited d/t headache. RD will f/u and educate at a later date.
[2018-05-11 20:36] LABS: ABG Base Excess 15.1 mmol/L (-2-2); ABG PCO2 70 mmHg (38-42); ABG PO2 81 mmHg (61-120)
[2018-05-11] MEDS: Insulin Detemir Inj 1,000 UNIT/10 ML Vial SQ SCH (20:41)
--- NOTE | 2018-05-11 20:50 | MB ---
cc: Brain Andre MD DATE: 05/11/2018 REQUESTING PHYSICIAN: Dr. Taylor REASON FOR CONSULTATION: COPD, lung nodule. HISTORY OF PRESENT ILLNESS: Mr. Leon is a 47-year-old male with longstanding history of smoking 2 packs a day for 25 years. He quit 2 years ago, also history of heavy alcohol use in the past. He has been having increasing swelling in his legs and shortness of breath for at least 1 year. He went to see his physician and was told to come to the hospital. He does admit that he can walk about a block or two and then he has to slow down. Has gained some weight, has increased swelling in his legs. No chest pain, no fevers, no night sweats, no nausea, vomiting with this and he came to the hospital. He had a CTA of the chest done. It does not show any pulmonary embolism. It shows that he has a 6 mm nodule on the left. His CBC shows WBC count 10.2, hemoglobin 15,000, hematocrit 47.4, MCV 90, platelet count 277. His sodium 136, potassium 4.2, chloride 94, CO2 35, BUN 21, creatinine 0.85, glucose 288. His INR is 1.0. PAST MEDICAL HISTORY: Significant for history of COPD, hypertension, diabetes mellitus, congestive heart failure, recently diagnosed obstructive sleep apnea, history of colon resection and reanastomosis. MEDICATIONS: He is currently takin. [place] for pain. 2. Aspirin 81 mg a day. 3. Lipitor 20 mg a day. 4. Symbicort 160/4.5 two puffs twice a day. 5. Tricor 145 mcg a day. 6. Lasix 40 mg 3 times a day. 7. Neurontin 400 mg 3 times a day. 8. Glipizide 5 mg twice a day. 8. He is on Insulin. 10. Lorazepam as needed. 11. Metformin 1000 mg twice a day. 12. Losartan 100 mg a day. 13. Nicotine patch. 14. Temazepam 15 mg at nighttime. ALLERGIES: ALLERGIC TO MORPHINE. SOCIAL HISTORY: He is . He has a history of smoking for 25 years 2 pack a day, which he quit 2 years ago and history of alcohol use. 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 FAMILY HISTORY: He is . He has 3 adopted children. Two of his sisters with cancer. One sister is a nurse. REVIEW OF SYSTEMS: He has gained weight has sleep apnea. No seizure, stroke. No DVT, pulmonary. PHYSICAL EXAMINATION: GENERAL: Obese male, mildly short of breath, not in any acute distress. VITAL SIGNS: Blood pressure 138/67, heart rate 96, respirations 22, saturation 96%. HEENT: Pupils are equal and reactive to light. Oral mucosa and nasal mucosa normal. NECK: Supple. JVD not raised. CHEST: Quiet. He has few rales. HEART: S1, S2 normal. ABDOMEN: Benign. EXTREMITIES: One plus pedal edema. IMPRESSION: 1. Dyspnea, likely from underlying chronic obstructive pulmonary disease. 2. Congestive heart failure. 3. A 6 mm lung nodule. 4. Obstructive sleep apnea. 5. Hyperlipidemia. PLAN: Discussed with the patient. Advised him to monitor fluid and salt intake. We will give him Symbicort 2 puffs twice a day aerosol treatment. I will check his pulmonary function study and blood gas. Advised him to use CPAP at nighttime. He will need a repeat CT scan of the chest in [address] scan followup. If the lung nodule starts increasing he will need PET scan and biopsy. Further treatment depends on the course in the hospital. Thank you Dr. Taylro for this consult. MD TRICIA Boykin/ct/do , 06:32 PM , 06:42 PM MTDAnnmarie
--- NOTE | 2018-05-12 07:41 | P.PNCA ---
Subjective Interval history: Shortness of breath and orthopnea continue to improve, but are not yet to baseline. Patient feels his leg swelling is unchanged. Reports much better urine output with diuretic adjustment yesterday. -1700 fluid balance overnight. BP is soft this morning. Medications and Allergies Allergies Allergy/AdvReac Type Severity Reaction Status Date / Time morphine Allergy Intermediate Anaphylaxis Verified 05/06/18 21:53 Home Medications Medication Instructions Recorded Confirmed Type amlodipine 5 mg PO DAILY 05/06/18 05/06/18 History fluticasone [Flovent HFA] 1 puff INHALATION Q12H PRN 05/06/18 05/06/18 History furosemide 40 mg PO DAILY 05/06/18 05/06/18 History gabapentin 400 mg PO TID 05/06/18 05/06/18 History losartan 100 mg PO DAILY 05/06/18 05/06/18 History potassium chloride 10 meq PO DAILY 05/06/18 05/06/18 History atorvastatin [Lipitor] 20 mg PO DAILY 05/07/18 05/07/18 History Active Medications: Active Medications Acetaminophen (Tylenol) 650 mg PO Q4H PRN PRN Reason: Temp > 100.4 Last Admin: 05/09/18 22:03 Dose: 650 mg Hydrocodone Bitart/Acetaminophen ([place] 7.5/325) 1 tab PO Q4H PRN PRN Reason: pain 1 - 10 Last Admin: 05/12/18 04:57 Dose: 1 tab Al Hydroxide/Mg Hydroxide (Milk Of Maximiliano Kincaid) 30 ml PO Q12H PRN PRN Reason: Mild Constipation Last Admin: 05/10/18 15:50 Dose: 30 ml Albuterol (Duoneb Neb (Prn)) 1 ampul NEB Q4HR NEB PRN PRN Reason: SHORTNESS OF BREATH/WHEEZING Aspirin (Ecotrin) 81 mg PO DAILY [facility] Last Admin: 05/11/18 08:07 Dose: 81 mg Atorvastatin Calcium (Lipitor) 20 mg PO DAILY [facility] Last Admin: 05/11/18 08:06 Dose: 20 mg Budesonide/Formoterol Fumarate (Symbicort 160/4.5 Mcg Inh) 1 puff INH BID [facility] Last Admin: 05/11/18 20:42 Dose: 1 puff Dextrose (D50w Vial) 50 ml IV.PUSH UNSCH PRN PRN Reason: PER HYPOGLYCEMIA PROTOCOL Fenofibrate (Tricor) 145 mg PO DAILY [facility] Last Admin: 05/11/18 08:05 Dose: 145 mg Flumazenil (Romazecon Inj) 0.2 mg IV.PUSH Q1M PRN PRN Reason: OVERSEDATION Furosemide (Lasix Inj) 40 mg IV.PUSH TID [facility] Last Admin: 05/11/18 18:02 Dose: 40 mg Gabapentin (Neurontin) 400 mg PO TID [facility] Last Admin: 05/11/18 18:02 Dose: 400 mg Glipizide (Glucotrol) 5 mg PO BID [facility] Last Admin: 05/11/18 20:41 Dose: 5 mg Glucagon (Glucagon Inj) 1 mg OTHER PRN PRN PRN Reason: for Hypoglycemia Protocol Insulin Aspart (Novolog Insulin [employer] Sugar Inj) 0 unit SQ ACHS [facility]; Protocol Last Admin: 05/11/18 20:42 Dose: 7 unit Insulin Detemir (Levemir Inj) 10 unit SQ HS [facility] Last Admin: 05/11/18 20:41 Dose: 10 unit Lorazepam (Ativan) 1 mg PO Q4H PRN PRN Reason: for CIWA 8-10 Lorazepam (Ativan Inj) 2 mg IV.PUSH Q2H PRN PRN Reason: for CIWA 11-14 Lorazepam (Ativan Inj) 2 mg IV.PUSH Q1H PRN PRN Reason: for CIWA 15-20 Lorazepam (Ativan Inj) 2 mg IV.PUSH Q15M PRN PRN Reason: for CIWA > 20 Lorazepam (Ativan Inj) 1 mg IV.PUSH Q4H PRN PRN Reason: for CIWA 8-10 Lorazepam (Ativan) 2 mg PO Q2H PRN PRN Reason: for CIWA 11-14 Losartan Potassium (Cozaar) 50 mg PO DAILY [facility] Met[facility] ([facility]) [facility] Last Admin: 05/11/18 18:02 Dose: 1,000 mg Miscellaneous (Pill Splitter) 1 each OTHER DAILY [facility] Last Admin: 05/11/18 08:08 Dose: 1 each Nicotine (Habitrol 14 Mg Patch.24 Hr) 1 patch T-DERMAL DAILY [facility] Last Admin: 05/11/18 08:02 Dose: 1 patch Ondansetron HCl (Zofran Inj) 4 mg IV.PUSH Q6H PRN PRN Reason: NAUSEA OR VOMITING Patch Removal (Remove Old Patch) 1 each T-DERMAL HS [facility] Last Admin: 05/11/18 20:42 Dose: 1 each Senna/Docusate Sodium (Veronica-Colace) 1 tab PO BID [facility] Last Admin: 05/11/18 20:41 Dose: 1 tab Sodium Chloride (Ns Flush) 2 ml IV.FLUSH UNSCH PRN PRN Reason: FLUSH AFTER USING IV ACCESS Last Admin: 05/08/18 20:58 Dose: 2 ml Spironolactone (Aldactone) 25 mg PO DAILY [facility] Last Admin: 05/11/18 09:29 Dose: 25 mg Temazepam (Restoril) 15 mg PO HS PRN PRN Reason: INSOMNIA/MAY REPEAT X1 DOSE Last Admin: 05/12/18 01:05 Dose: 15 mg Physical Exam Vital signs: Vital Signs 05/11/18 08:00 05/11/18 09:54 05/11/18 09:55 Temperature 97.9 F Pulse Rate 85 86 Respiratory Rate 18 20 Blood Pressure 127/77 Pulse Oximetry 93 L 92 L Pulse Oximetry [Resting on Room Air] Pulse Oximetry [Resting with Oxygen] 05/11/18 10:00 05/11/18 12:00 05/11/18 16:00 Temperature 97.8 F 98.0 F Pulse Rate 91 H 91 H Respiratory Rate 20 22 Blood Pressure 128/60 138/67 Pulse Oximetry 96 96 Pulse Oximetry [Resting on Room Air] 83 L Pulse Oximetry [Resting with Oxygen] 92 L 05/11/18 20:00 05/11/18 23:57 05/12/18 00:00 Temperature 97.8 F 98.1 F Pulse Rate 93 H 89 92 H Respiratory Rate 16 18 Blood Pressure 116/69 108/74 Pulse Oximetry 95 97 Pulse Oximetry [Resting on Room Air] Pulse Oximetry [Resting with Oxygen] 05/12/18 04:00 Temperature 97.7 F Pulse Rate 101 H Respiratory Rate 20 Blood Pressure 94/74 L Pulse Oximetry 95 Pulse Oximetry [Resting on Room Air] Pulse Oximetry [Resting with Oxygen] Intake & Output 05/11/18 05/12/18 05/12/18 18:59 06:59 18:59 Intake Total 960 / 960 720 / 720 Output Total 2450 / 2450 925 / 925 Balance -1490 / -1490 - Weight 208 lb 5.389 oz Intake: Oral 960 / 960 720 / 720 Output: Urine 2450 / 2450 925 / 925 Other: Date of Last Bowel Movement 05/10/18 05/11/18 Narrative: GENERAL: Well-developed well-nourished. Obese. Able to lay down at about a 30 degree angle. NECK: No carotid bruits. + JVD. CARDIOVASCULAR: Regular rate and rhythm. No murmur appreciated. RESPIRATORY: No accessory muscle use. Clear to auscultation bilaterally. MUSCULOSKELETAL: No clubbing or cyanosis. 3+ edema. NEUROLOGICAL: Awake and alert. Normal speech. Results 05/08/18 06:10 05/12/18 05:08 Cardiac Enzymes 05/11/18 05/12/18 Range/Units 04:57 05:08 B-Natriuretic Peptide 16 7 (0-100) pg/mL Coagulation 05/11/18 05/12/18 Range/Units 04:57 05:08 B-Natriuretic Peptide 16 7 (0-100) pg/mL Comprehensive Metabolic Panel 05/11/18 Range/Units 04:57 Sodium 136 (136-145) meq/L Potassium 4.2 (3.5-5.1) meq/L Chloride 94 L (98-107) meq/L Carbon Dioxide 37.5 H (21.0-32.0) meq/L BUN 21 H (7-18) mg/dL Creatinine 0.85 (0.60-1.30) mg/dL Calcium 8.1 L D (8.5-10.1) mg/dL Intake and Output 05/11/18 05/12/18 05/12/18 22:59 06:59 14:59 Intake Total 960 / 960 720 / 720 Output Total 2450 / 2450 925 / 925 Balance -1490 / -1490 - Intake: Oral 960 / 960 720 / 720 Output: Urine 2450 / 2450 925 / 925 Other: Date of Last Bowel Movement 05/11/18 Weight 208 lb 5.389 oz Assessment and Plan - Plan 47-year-old male with a past medical history of HTN, HLD, DM, COPD, diastolic CHF who presented with shortness of breath, leg swelling, weight gain. Acute exacerbation of chronic diastolic CHF: NYHA Class III/IV symptoms. Continue IV Lasix 40 mg 3 times daily, spironolactone 25 mg daily. Continue ARB. Another dose of metolazone 2.5mg today and reassess. Monitor strict intake and output, electrolytes, and renal function. CAD: Lexiscan performed with no high risk findings. Medical management for now , started aspirin, continue statin. Hypertension: BP is a bit soft this morning, decrease losartan to 50 mg. Hyperlipidemia: Continue atorvastatin 20 mg. With triglycerides 900s, started fenofibrate. Carbohydrate controlled diet recommended. Morbid obesity with uncontrolled diabetes: A1c 14. BMI greater than 35. perioperative educator and dietitian consulted. Encouraged lifestyle modifications for weight loss. Tobacco abuse: Strongly recommended cessation. Discussed Condition With: Patient, Dr. Melgar - Attending Attestation patient seen and examined. agree with above.
[2018-05-12 07:45] LABS: Anion Gap 5 meq/L (5-15); Blood Urea Nitrogen 28 mg/dL (7-18); Carbon Dioxide 38.4 meq/L (21.0-32.0); Chloride 92 meq/L (98-107); Glomerular Filtration Rate Greater Than 89 mL/min (>89); Glucose,Random 168 mg/dL (74-106); Potassium 4.1 meq/L (3.5-5.1); Sodium 135 meq/L (136-145)
[2018-05-12] MEDS ORDERED: Sodium Chloride 0.9% 2 ML Flush PRN IV.FLUSH (07:46)
[2018-05-12] MEDS: Fenofibrate 145 MG Tablet PO SCH (08:05)
[2018-05-12] MEDS: Senna/Docusate Sodium 8.6/50 MG Tablet PO SCH ×2 (08:06→21:50)
[2018-05-12] MEDS: glipiZIDE 5 MG Tablet PO SCH ×2 (08:06→21:50)
[2018-05-12] MEDS: Spironolactone 25 MG Tablet PO SCH (08:07)
[2018-05-12] MEDS: Gabapentin 400 MG Capsule PO SCH ×3 (08:07→17:54)
[2018-05-12] MEDS: Insulin NovoLOG Aspart Correctional Sugar Inj SQ SCH ×4 (08:08→21:50)
[2018-05-12] MEDS: Budesonide-Formoterol 160/4.5 MCG 6 GM Inhaler INH SCH ×2 (08:09→21:52)
[2018-05-12] MEDS: Sodium Chloride 0.9% 2 ML Flush BID IV.FLUSH SCH ×2 (08:09→21:51)
--- NOTE | 2018-05-12 09:43 | P.PNIM ---
Subjective Interval history: lying on bed getting ready for an xray. no new complaints Physical Exam Vital signs: Last Vital Signs Temp 97.9 F 05/12/18 08:00 Pulse 82 05/12/18 08:00 Resp 16 05/12/18 08:00 BP 135/96 H 05/12/18 08:00 Pulse Ox 97 05/12/18 08:00 Narrative: heart reg lung good air entry abd s/nt ext lower ext edema improving. Results Labs CBC & Chem 7: 05/08/18 06:10 05/12/18 05:08 Assessment and Plan Plan This is a 47 year old male patient with a past medical history which includes HTN, HLD, COPD, DM type 2, current tobacco use and diastolic CHF last echocardiogram in outpatient records 10/2016 showed EF of 60-65% with grade 1 diastolic dysfunction. Patient presents the emergency department for evaluation of shortness of breath and leg swelling gradually worsening over the past few weeks. Patient also endorses a history of orthopnea. Patient is unsure if he has gained weight. Denies any chest pain, fever, cough or congestion. Seen by his primary care physician who noted that the patient did have some rales and some pedal edema and sent him to the ER for further evaluation. Acute exacerbation of diastolic CHF - Outpt 2D echocardiogram from 10/2016 showed EF of 60-65% with grade 1 diastolic dysfunction - Pt was given Lasix 80 mg IV given in ER - He had been continued on Lasix 40 mg IV BID - Chest X-Ray (05/06/18) -->Minimal bibasilar atelectasis. - Chest CTA (05/07/18) 1. No pulmonary emboli. 2. 6 mm nodule pulmonary nodule on the left. Current guidelines suggest a repeat CT of the chest in 6 months. - Pt anxious about pulmonary nodule. He has 2 siblings who had cancer, so obtain repeat CT in 3 months. - Repeat CXR (05/09/18) --> bibasilar atelectasis - CKMB, troponin (05/08) --> WNL - Lexiscan (05/09/18) 1. Small segment of stress-induced ischemia anterior myocardium 2. Depressed ejection fraction with inferior lateral hypokinesis. - Appreciate input from [facility] Cardiology - On 05/11/18 pt had noted increased LE edema. Lasix was increased to 40mg IV TID and Aldactone 25mg po daily was added a long with a dose of Metolazone by Cardiology. - Monitor I&Os closely - DVT prophylaxis cont current medication rx and monitor i/o and bmp. f/u cxr. HTN - stable on amlodipine 5mg and losartan 100mg daily HLD - continue Lipitor - Triglyceride 922. D/t uncontrolled DM - LDL could NOT be calculated d/t elevated trig - improve glycemic control & repeat fasting lipid panel in 1 month - Tricor 145mg po daily added on 05/10 COPD - Does not appear to be in acute exacerbation - Duo nebs Q6H while awake and as needed - Symbicort on puff BID - anticipate pt will require home oxygen upon discharge - Pt has already been diagnosed with KEITH by Dr. Hoffman. - Pt does NOT use his CPAP d/t ill fitting mask. - Pt understands that he needs to f/u with Dr. Hoffman upon discharge. - Pt is requesting evaluation from Pulmonology for the lung nodule and hx of COPD DM type 2 - Glipizide increased to 5mg BID - Glucophage increased to 1000mg BID - Add Levemir 10 units HS today - HgA1C --> 14.3 (05/08/18) - SSI - consult public health educator Diabetic peripheral neuropathy - Continue patient's home gabapentin Current tobacco user - Counselled encouraged to abstain - Patient requesting nicotine patch DVT prophylaxis with SCDs Progress Note: Quality VTE Deep Vein Thrombosis/Pulmonary Embolism Present on Admission: No
--- NOTE | 2018-05-12 10:02 | XR ---
EXAM DATE: 05/12/2018 9:42 AM EST AGE/SEX: 47 years / Male INDICATIONS: . Patient has shortness of breath. CLINICAL DATA: This is the patient's subsequent encounter. Patient reports that signs and symptoms h ave been present for 2 months and indicates a pain score of 2/10. MEDICAL/SURGICAL HISTORY: Diabetes. Colon resection. COMPARISON: [facility] [place] 2V AP&LAT, 05/09/2018. . FINDINGS: Minimal bibasilar atelectatic changes are noted. The heart is stable. The pulmonary vascular pattern is normal. CONCLUSION: Minimal bibasilar atelectatic changes. Electronically signed by: Pato García MD 05/12/2018 10:01 AM EST
--- NOTE | 2018-05-12 19:15 | P.PNPL ---
Subjective Interval history: 47 YO Obese Wm with COPD,KEITH, Diastolic CHF breathing better Denies sob no CP ABG Compensated Resp acidosis Physical Exam Vital signs: Vital Signs 05/11/18 20:00 05/11/18 23:57 05/12/18 00:00 Temperature 97.8 F 98.1 F Pulse Rate 93 H 89 92 H Respiratory Rate 16 18 Blood Pressure 116/69 108/74 Pulse Oximetry 95 97 05/12/18 04:00 05/12/18 08:00 05/12/18 12:00 Temperature 97.7 F 97.9 F 98.4 F Pulse Rate 101 H 82 91 H Respiratory Rate 20 16 16 Blood Pressure 94/74 L 135/96 H 107/71 Pulse Oximetry 95 97 95 Intake & Output 05/12/18 05/12/18 05/13/18 06:59 18:59 06:59 Intake Total 720 / 720 Output Total 925 / 925 3100 / 3100 Balance -205 / -205 -3100 / -3100 Weight 94.5 kg Intake: Oral 720 / 720 Output: Urine 925 / 925 3100 / 3100 Other: Date of Last Bowel Movement 05/11/18 05/11/18 GENERAL: obese WM, NAD SKIN: Warm and dry. HEAD: Normocephalic. EYES: No scleral icterus. No injection or drainage. NECK: Supple, trachea midline. No JVD or lymphadenopathy. CARDIOVASCULAR: Regular rate and rhythm without murmurs, gallops, or rubs. RESPIRATORY: Breath sounds equal bilaterally. No accessory muscle use. GASTROINTESTINAL: Abdomen soft, non-tender, nondistended. MUSCULOSKELETAL: No cyanosis, or edema. BACK: Nontender without obvious deformity. No CVA tenderness. Assessment and Plan - Plan IMPRESSION: 1. Dyspnea, likely from underlying chronic obstructive pulmonary disease. 2. Congestive heart failure. 3. A 6 mm lung nodule. 4. Obstructive sleep apnea. 5. Hyperlipidemia. 6. Atelactesis PLAN: Symbicort 2 puffs bid Aerosol nebs Supplement 02 to keep sat 88-92% CPAP at night Will need rpt CT chest 6 months
[2018-05-12] MEDS: Insulin Detemir Inj 1,000 UNIT/10 ML Vial SQ SCH (21:50)
--- NOTE | 2018-05-13 08:24 | P.PNCA ---
Subjective Interval history: Still some shortness of breath and orthopnea but breathing much more comfortably. He feels like the skin in his legs and feet feel loose now that the swelling is going down. Reports good urine output. Was told to restrict oral intake by cashier clerk. He reports labs today were drawn, results not available. Medications and Allergies Allergies Allergy/AdvReac Type Severity Reaction Status Date / Time morphine Allergy Intermediate Anaphylaxis Verified 05/06/18 21:53 Home Medications Medication Instructions Recorded Confirmed Type amlodipine 5 mg PO DAILY 05/06/18 05/06/18 History fluticasone [Flovent HFA] 1 puff INHALATION Q12H PRN 05/06/18 05/06/18 History furosemide 40 mg PO DAILY 05/06/18 05/06/18 History gabapentin 400 mg PO TID 05/06/18 05/06/18 History losartan 100 mg PO DAILY 05/06/18 05/06/18 History potassium chloride 10 meq PO DAILY 05/06/18 05/06/18 History atorvastatin [Lipitor] 20 mg PO DAILY 05/07/18 05/07/18 History Active Medications: Active Medications Acetaminophen (Tylenol) 650 mg PO Q4H PRN PRN Reason: Temp > 100.4 Last Admin: 05/09/18 22:03 Dose: 650 mg Hydrocodone Bitart/Acetaminophen ([place] 7.5/325) 1 tab PO Q4H PRN PRN Reason: pain 1 - 10 Last Admin: 05/13/18 02:39 Dose: 1 tab Al Hydroxide/Mg Hydroxide (Milk Of Magnmanuel Liq) 30 ml PO Q12H PRN PRN Reason: Mild Constipation Last Admin: 05/10/18 15:50 Dose: 30 ml Albuterol (Duoneb Neb (Prn)) 1 ampul NEB Q4HR NEB PRN PRN Reason: SHORTNESS OF BREATH/WHEEZING Aspirin (Ecotrin) 81 mg PO DAILY [facility] Last Admin: 05/12/18 08:06 Dose: 81 mg Atorvastatin Calcium (Lipitor) 20 mg PO DAILY [facility] Last Admin: 05/12/18 08:07 Dose: 20 mg Budesonide/Formoterol Fumarate (Symbicort 160/4.5 Mcg Inh) 1 puff INH BID [facility] Last Admin: 05/12/18 21:52 Dose: 1 puff Dextrose (D50w Vial) 50 ml IV.PUSH UNSCH PRN PRN Reason: PER HYPOGLYCEMIA PROTOCOL Fenofibrate (Tricor) 145 mg PO DAILY [facility] Last Admin: 05/12/18 08:05 Dose: 145 mg Flumazenil (Romazecon Inj) 0.2 mg IV.PUSH Q1M PRN PRN Reason: OVERSEDATION Furosemide (Lasix Inj) 40 mg IV.PUSH TID [facility] Last Admin: 05/12/18 17:54 Dose: 40 mg Gabapentin (Neurontin) 400 mg PO TID [facility] Last Admin: 05/12/18 17:54 Dose: 400 mg Glipizide (Glucotrol) 5 mg PO BID [facility] Last Admin: 05/12/18 21:50 Dose: 5 mg Glucagon (Glucagon Inj) 1 mg OTHER PRN PRN PRN Reason: for Hypoglycemia Protocol Insulin Aspart (Novolog Insulin Correctional Sugar Inj) 0 unit SQ ACHS [facility]; Protocol Last Admin: 05/12/18 21:50 Dose: 7 unit Insulin Detemir (Levemir Inj) 10 unit SQ HS [facility] Last Admin: 05/12/18 21:50 Dose: 10 unit Lorazepam (Ativan) 1 mg PO Q4H PRN PRN Reason: for CIWA 8-10 Lorazepam (Ativan Inj) 2 mg IV.PUSH Q2H PRN PRN Reason: for CIWA 11-14 Lorazepam (Ativan Inj) 2 mg IV.PUSH Q1H PRN PRN Reason: for CIWA 15-20 Lorazepam (Ativan Inj) 2 mg IV.PUSH Q15M PRN PRN Reason: for CIWA > 20 Lorazepam (Ativan Inj) 1 mg IV.PUSH Q4H PRN PRN Reason: for CIWA 8-10 Lorazepam (Ativan) 2 mg PO Q2H PRN PRN Reason: for CIWA 11-14 Losartan Potassium (Cozaar) 50 mg PO DAILY [facility] Last Admin: 05/12/18 08:05 Dose: 50 mg [facility] Last Admin: 05/12/18 17:54 Dose: 1,000 mg Miscellaneous (Pill Splitter) 1 each OTHER DAILY [facility] Last Admin: 05/12/18 12:53 Dose: 1 each Nicotine (Habitrol 14 Mg Patch.24 Hr) 1 patch T-DERMAL DAILY [facility] Last Admin: 05/12/18 08:08 Dose: 1 patch Ondansetron HCl (Zofran Inj) 4 mg IV.PUSH Q6H PRN PRN Reason: NAUSEA OR VOMITING Patch Removal (Remove Old Patch) 1 each T-DERMAL HS [facility] Last Admin: 05/12/18 21:51 Dose: 1 each Senna/Docusate Sodium (Veronica-Colace) 1 tab PO BID [facility] Last Admin: 05/12/18 21:50 Dose: 1 tab Sodium Chloride (Ns Flush) 2 ml IV.FLUSH BID [facility] Last Admin: 05/12/18 21:51 Dose: 2 ml Sodium Chloride (Ns Flush) 2 ml IV.FLUSH PRN PRN PRN Reason: FLUSH AFTER USING IV ACCESS Spironolactone (Aldactone) 25 mg PO DAILY [facility] Last Admin: 05/12/18 08:07 Dose: 25 mg Temazepam (Restoril) 15 mg PO HS PRN PRN Reason: INSOMNIA/MAY REPEAT X1 DOSE Last Admin: 05/12/18 01:05 Dose: 15 mg Physical Exam Vital signs: Vital Signs 05/12/18 12:00 05/12/18 16:00 05/12/18 20:00 Temperature 98.4 F 98.5 F Pulse Rate 91 H 92 H 98 H Respiratory Rate 16 20 Blood Pressure 107/71 104/68 Pulse Oximetry 95 95 05/13/18 00:00 05/13/18 04:00 Temperature 97.4 F L 98.1 F Pulse Rate 95 H 89 Respiratory Rate 19 18 Blood Pressure 151/88 H 156/80 H Pulse Oximetry 92 L 92 L Intake & Output 05/12/18 05/13/18 05/13/18 18:59 06:59 18:59 Intake Total 360 / 360 Output Total 3100 / 3100 300 / 300 Balance -3100 / -3100 60 / 60 Weight 244 lb 0.827 oz Intake: Oral 360 / 360 Output: Urine 3100 / 3100 300 / 300 Other: Date of Last Bowel Movement 05/11/18 # Bowel Movements 0 Narrative: GENERAL: Well-developed well-nourished. Obese. NECK: No carotid bruits. + JVD. CARDIOVASCULAR: Regular rate and rhythm. No murmur appreciated. RESPIRATORY: No accessory muscle use. Clear to auscultation bilaterally. MUSCULOSKELETAL: No clubbing or cyanosis. 2+ edema. NEUROLOGICAL: Awake and alert. Normal speech. Results 05/08/18 06:10 05/12/18 05:08 Cardiac Enzymes 05/12/18 Range/Units 05:08 B-Natriuretic Peptide 7 (0-100) pg/mL Coagulation 05/12/18 Range/Units 05:08 B-Natriuretic Peptide 7 (0-100) pg/mL Comprehensive Metabolic Panel 05/12/18 Range/Units 05:08 Sodium 135 L (136-145) meq/L Potassium 4.1 (3.5-5.1) meq/L Chloride 92 L (98-107) meq/L Carbon Dioxide 38.4 H (21.0-32.0) meq/L BUN 28 H (7-18) mg/dL Creatinine 0.88 (0.60-1.30) mg/dL Calcium 9.0 D (8.5-10.1) mg/dL Intake and Output 05/12/18 05/13/18 05/13/18 22:59 06:59 14:59 Intake Total 360 / 360 Output Total 3100 / 3100 300 / 300 Balance -3100 / -3100 60 / 60 Intake: Oral 360 / 360 Output: Urine 3100 / 3100 300 / 300 Other: # Bowel Movements 0 Weight 244 lb 0.827 oz - Imaging and Cardiology Imaging: Impressions Chest X-Ray 05/12/18 07:00 CONCLUSION: Minimal bibasilar atelectatic changes. Assessment and Plan - Plan 47-year-old male with a past medical history of HTN, HLD, DM, COPD, diastolic CHF who presented with shortness of breath, leg swelling, weight gain. Acute exacerbation of chronic diastolic CHF: NYHA Class III/IV symptoms. Continue IV Lasix 40 mg 3 times daily, spironolactone 25 mg daily and Losartan. Continue aggressive diuresis until creatinine bumps and then convert to oral lasix. Would provide additional dose of Metolazone 2.5mg x 1 again today if Cr has yet to bump. Monitor strict intake and output, electrolytes, and renal function. CAD: Lexiscan performed with no high risk findings. Medical management for now , started aspirin, continue statin. Hypertension: BP increased with lower dose of losartan, increase back to 100mg daily. Hyperlipidemia: Continue atorvastatin 20 mg. With triglycerides 900s, started fenofibrate. Carbohydrate controlled diet recommended. Morbid obesity with uncontrolled diabetes: A1c 14. BMI greater than 35. staff educator and dietitian consulted. Encouraged lifestyle modifications for weight loss. Tobacco abuse: Strongly recommended cessation. Will sign off. Call with further questions. Dr Ordaz is on over the weekend. Discussed Condition With: Patient, hospitalist, Dr. Melgar
[2018-05-13] MEDS: Sodium Chloride 0.9% 2 ML Flush BID IV.FLUSH SCH ×2 (09:00→21:19)
[2018-05-13] MEDS: Budesonide-Formoterol 160/4.5 MCG 6 GM Inhaler INH SCH ×2 (09:00→21:19)
[2018-05-13 09:35] LABS: Calcium 9.4 mg/dL (8.5-10.1); Carbon Dioxide 43.3 meq/L (21.0-32.0); Potassium 4.7 meq/L (3.5-5.1)
[2018-05-13] MEDS: Gabapentin 400 MG Capsule PO SCH ×3 (10:09→18:00)
[2018-05-13] MEDS: Senna/Docusate Sodium 8.6/50 MG Tablet PO SCH ×2 (10:10→21:17)
[2018-05-13] MEDS: glipiZIDE 5 MG Tablet PO SCH ×2 (10:10→21:17)
[2018-05-13] MEDS: Spironolactone 25 MG Tablet PO SCH (10:10)
[2018-05-13] MEDS: Fenofibrate 145 MG Tablet PO SCH (10:10)
[2018-05-13] MEDS: Insulin NovoLOG Aspart Correctional Sugar Inj SQ SCH ×4 (10:15→21:18)
--- NOTE | 2018-05-13 10:45 | P.PNIM ---
Subjective Interval history: pt feeling better. Physical Exam Vital signs: Last Vital Signs Temp 97.9 F 05/13/18 08:00 Pulse 82 05/13/18 08:00 Resp 18 05/13/18 08:00 BP 133/82 05/13/18 08:00 Pulse Ox 93 L 05/13/18 08:00 Narrative: heart reg lung good air entry abd s/nt ext lower ext edema improving. Results Labs CBC & Chem 7: 05/08/18 06:10 05/13/18 07:12 Assessment and Plan Plan This is a 47 year old male patient with a past medical history which includes HTN, HLD, COPD, DM type 2, current tobacco use and diastolic CHF last echocardiogram in outpatient records 10/2016 showed EF of 60-65% with grade 1 diastolic dysfunction. Patient presents the emergency department for evaluation of shortness of breath and leg swelling gradually worsening over the past few weeks. Patient also endorses a history of orthopnea. Patient is unsure if he has gained weight. Denies any chest pain, fever, cough or congestion. Seen by his primary care physician who noted that the patient did have some rales and some pedal edema and sent him to the ER for further evaluation. Acute exacerbation of diastolic CHF - Outpt 2D echocardiogram from 10/2016 showed EF of 60-65% with grade 1 diastolic dysfunction - Pt was given Lasix 80 mg IV given in ER - He had been continued on Lasix 40 mg IV BID - Chest X-Ray (05/06/18) -->Minimal bibasilar atelectasis. - Chest CTA (05/07/18) 1. No pulmonary emboli. 2. 6 mm nodule pulmonary nodule on the left. Current guidelines suggest a repeat CT of the chest in 6 months. - Pt anxious about pulmonary nodule. He has 2 siblings who had cancer, so obtain repeat CT in 3 months. - Repeat CXR (05/09/18) --> bibasilar atelectasis - CKMB, troponin (05/08) --> WNL - Lexiscan (05/09/18) 1. Small segment of stress-induced ischemia anterior myocardium 2. Depressed ejection fraction with inferior lateral hypokinesis. - Appreciate input from [facility] Cardiology - On 05/11/18 pt had noted increased LE edema. Lasix was increased to 40mg IV TID and Aldactone 25mg po daily was added a long with a dose of Metolazone by Cardiology. - Monitor I&Os closely - DVT prophylaxis cardiology with iv lasix tid. I think it could be converted to po monitor bmp HTN - stable on amlodipine 5mg and losartan 100mg daily HLD - continue Lipitor - Triglyceride 922. D/t uncontrolled DM - LDL could NOT be calculated d/t elevated trig - improve glycemic control & repeat fasting lipid panel in 1 month - Tricor 145mg po daily added on 05/10 COPD - Does not appear to be in acute exacerbation - Duo nebs Q6H while awake and as needed - Symbicort on puff BID - anticipate pt will require home oxygen upon discharge - Pt has already been diagnosed with KEITH by Dr. Hoffman. - Pt does NOT use his CPAP d/t ill fitting mask. - Pt understands that he needs to f/u with Dr. Hoffman upon discharge. - Pt is requesting evaluation from Pulmonology for the lung nodule and hx of COPD DM type 2 - Glipizide increased to 5mg BID - Glucophage increased to 1000mg BID - increase levemir. - HgA1C --> 14.3 (05/08/18) - SSI - consult clinical nurse educator Diabetic peripheral neuropathy - Continue patient's home gabapentin Current tobacco user - Counselled encouraged to abstain - Patient requesting nicotine patch DVT prophylaxis with SCDs Progress Note: Quality VTE Deep Vein Thrombosis/Pulmonary Embolism Present on Admission: No
--- NOTE | 2018-05-13 11:26 | P.PNPL ---
Subjective Interval history: 47 YO Obese Wm with COPD,KEITH, Diastolic CHF breathing better Denies sob no CP ABG Compensated Resp acidosis PFT mod severe Obst disease Physical Exam Vital signs: Vital Signs 05/12/18 12:00 05/12/18 16:00 05/12/18 20:00 Temperature 98.4 F 98.5 F Pulse Rate 91 H 92 H 98 H Respiratory Rate 16 20 Blood Pressure 107/71 104/68 Pulse Oximetry 95 95 05/13/18 00:00 05/13/18 04:00 05/13/18 08:00 Temperature 97.4 F L 98.1 F 97.9 F Pulse Rate 95 H 89 82 Respiratory Rate 19 18 18 Blood Pressure 151/88 H 156/80 H 133/82 Pulse Oximetry 92 L 92 L 93 L Intake & Output 05/12/18 05/13/18 05/13/18 18:59 06:59 18:59 Intake Total 360 / 360 Output Total 3100 / 3100 300 / 300 Balance -3100 / -3100 60 / 60 Weight 110.7 kg Intake: Oral 360 / 360 Output: Urine 3100 / 3100 300 / 300 Other: Date of Last Bowel Movement 05/11/18 # Bowel Movements 0 GENERAL: WBWN NAD SKIN: Warm and dry. HEAD: Normocephalic. EYES: No scleral icterus. No injection or drainage. NECK: Supple, trachea midline. No JVD or lymphadenopathy. CARDIOVASCULAR: Regular rate and rhythm without murmurs, gallops, or rubs. RESPIRATORY: Breath sounds equal bilaterally. No accessory muscle use. Scattered rhonchi GASTROINTESTINAL: Abdomen soft, non-tender, nondistended. MUSCULOSKELETAL: No cyanosis, or edema. BACK: Nontender without obvious deformity. No CVA tenderness. Assessment and Plan - Plan IMPRESSION: 1. Dyspnea, likely from underlying chronic obstructive pulmonary disease. 2. Congestive heart failure. 3. A 6 mm lung nodule. 4. Obstructive sleep apnea. 5. Hyperlipidemia. 6. Atelactesis PLAN: Symbicort 2 puffs bid Aerosol nebs Supplement 02 to keep sat 88-92% CPAP at night Will need rpt CT chest 6 months 02 walk test
[2018-05-13] MEDS: Furosemide 40 MG Tablet PO SCH (18:00)
[2018-05-13] MEDS: Insulin Detemir Inj 1,000 UNIT/10 ML Vial SQ SCH (21:18)
[2018-05-14 07:59] LABS: Calcium 9.5 mg/dL (8.5-10.1); Carbon Dioxide 43.1 meq/L (21.0-32.0); Potassium 4.3 meq/L (3.5-5.1)
[2018-05-14] MEDS: Insulin NovoLOG Aspart Correctional Sugar Inj SQ SCH ×4 (09:34→22:37)
[2018-05-14] MEDS: glipiZIDE 5 MG Tablet PO SCH ×2 (09:35→21:02)
[2018-05-14] MEDS: Fenofibrate 145 MG Tablet PO SCH (09:35)
[2018-05-14] MEDS: Senna/Docusate Sodium 8.6/50 MG Tablet PO SCH ×2 (09:35→21:02)
[2018-05-14] MEDS: Furosemide 40 MG Tablet PO SCH ×2 (09:35→17:14)
[2018-05-14] MEDS: Spironolactone 25 MG Tablet PO SCH (09:35)
[2018-05-14] MEDS: Gabapentin 400 MG Capsule PO SCH ×3 (09:35→17:14)
[2018-05-14] MEDS: Insulin Detemir Inj 1,000 UNIT/10 ML Vial SQ SCH (09:37)
[2018-05-14] MEDS: Sodium Chloride 0.9% 2 ML Flush BID IV.FLUSH SCH ×2 (09:38→21:05)
[2018-05-14] MEDS: Budesonide-Formoterol 160/4.5 MCG 6 GM Inhaler INH SCH ×2 (09:38→21:05)
--- NOTE | 2018-05-14 11:36 | P.PNIM ---
Subjective Interval history: pt overall feeling better. Physical Exam Vital signs: Last Vital Signs Temp 98.9 F 05/14/18 08:00 Pulse 91 H 05/14/18 08:00 Resp 18 05/14/18 08:00 BP 133/77 05/14/18 08:00 Pulse Ox 95 05/14/18 11:15 Narrative: heart reg lung good air entry abd s/nt ext lower ext edema improving. Results Labs CBC & Chem 7: 05/08/18 06:10 05/14/18 05:53 Assessment and Plan Plan This is a 47 year old male patient with a past medical history which includes HTN, HLD, COPD, DM type 2, current tobacco use and diastolic CHF last echocardiogram in outpatient records 10/2016 showed EF of 60-65% with grade 1 diastolic dysfunction. Patient presents the emergency department for evaluation of shortness of breath and leg swelling gradually worsening over the past few weeks. Patient also endorses a history of orthopnea. Patient is unsure if he has gained weight. Denies any chest pain, fever, cough or congestion. Seen by his primary care physician who noted that the patient did have some rales and some pedal edema and sent him to the ER for further evaluation. Acute exacerbation of diastolic CHF - Outpt 2D echocardiogram from 10/2016 showed EF of 60-65% with grade 1 diastolic dysfunction - Pt was given Lasix 80 mg IV given in ER - He had been continued on Lasix 40 mg IV BID - Chest X-Ray (05/06/18) -->Minimal bibasilar atelectasis. - Chest CTA (05/07/18) 1. No pulmonary emboli. 2. 6 mm nodule pulmonary nodule on the left. Current guidelines suggest a repeat CT of the chest in 6 months. - Pt anxious about pulmonary nodule. He has 2 siblings who had cancer, so obtain repeat CT in 3 months. - Repeat CXR (05/09/18) --> bibasilar atelectasis - CKMB, troponin (05/08) --> WNL - Lexiscan (05/09/18) 1. Small segment of stress-induced ischemia anterior myocardium 2. Depressed ejection fraction with inferior lateral hypokinesis. - Appreciate input from [facility] Cardiology - On 05/11/18 pt had noted increased LE edema. Lasix was increased to 40mg IV TID and Aldactone 25mg po daily was added a long with a dose of Metolazone by Cardiology. - Monitor I&Os closely - DVT prophylaxis iv lasix converted to po 05/13 walk test for home o2 needs close cardiology f/u on dc monitor bmp HTN - stable on amlodipine 5mg and losartan 100mg daily HLD - continue Lipitor - Triglyceride 922. D/t uncontrolled DM - LDL could NOT be calculated d/t elevated trig - improve glycemic control & repeat fasting lipid panel in 1 month - Tricor 145mg po daily added on 05/10 COPD - Does not appear to be in acute exacerbation - Duo nebs Q6H while awake and as needed - Symbicort on puff BID - anticipate pt will require home oxygen upon discharge - Pt has already been diagnosed with KEITH by Dr. Hoffman. - Pt does NOT use his CPAP d/t ill fitting mask. - Pt understands that he needs to f/u with Dr. Hoffman upon discharge. - Pt is requesting evaluation from Pulmonology for the lung nodule and hx of COPD DM type 2 - Glipizide increased to 5mg BID - Glucophage increased to 1000mg BID - increased levemir. - HgA1C --> 14.3 (05/08/18) - SSI - consulted extension educator Diabetic peripheral neuropathy - Continue patient's home gabapentin Current tobacco user - Counselled encouraged to abstain - Patient requesting nicotine patch DVT prophylaxis with SCDs Progress Note: Quality VTE Deep Vein Thrombosis/Pulmonary Embolism Present on Admission: No
[2018-05-14] MEDS ORDERED: Insulin Detemir Inj 1,000 UNIT/10 ML Vial SQ SCH (21:00)
[2018-05-15] MEDS: Insulin NovoLOG Aspart Correctional Sugar Inj SQ SCH ×4 (07:51→20:56)
[2018-05-15] MEDS: Insulin Detemir Inj 1,000 UNIT/10 ML Vial SQ SCH ×2 (08:08→20:57)
[2018-05-15] MEDS: Senna/Docusate Sodium 8.6/50 MG Tablet PO SCH ×2 (08:09→20:53)
[2018-05-15] MEDS: Gabapentin 400 MG Capsule PO SCH ×3 (08:09→17:23)
[2018-05-15] MEDS: glipiZIDE 5 MG Tablet PO SCH ×2 (08:09→20:53)
[2018-05-15] MEDS: Sodium Chloride 0.9% 2 ML Flush BID IV.FLUSH SCH ×2 (08:09→20:53)
[2018-05-15] MEDS: Spironolactone 25 MG Tablet PO SCH (08:09)
[2018-05-15] MEDS: Furosemide 40 MG Tablet PO SCH ×2 (08:09→17:23)
[2018-05-15] MEDS: Fenofibrate 145 MG Tablet PO SCH (08:09)
[2018-05-15] MEDS: Budesonide-Formoterol 160/4.5 MCG 6 GM Inhaler INH SCH ×2 (08:11→20:55)
[2018-05-15 09:03] LABS: Carbon Dioxide 41.5 meq/L (21.0-32.0); Potassium 4.1 meq/L (3.5-5.1)
--- NOTE | 2018-05-15 09:32 | P.PNIM ---
Subjective Interval history: no new complaints Physical Exam Vital signs: Last Vital Signs Temp 97.7 F 05/15/18 08:00 Pulse 93 H 05/15/18 08:00 Resp 21 05/15/18 08:00 BP 114/65 05/15/18 08:00 Pulse Ox 94 L 05/15/18 08:00 Narrative: heart reg lung good air entry abd s/nt ext lower ext edema improving. Results Labs CBC & Chem 7: 05/08/18 06:10 05/15/18 07:31 Assessment and Plan Plan This is a 47 year old male patient with a past medical history which includes HTN, HLD, COPD, DM type 2, current tobacco use and diastolic CHF last echocardiogram in outpatient records 10/2016 showed EF of 60-65% with grade 1 diastolic dysfunction. Patient presents the emergency department for evaluation of shortness of breath and leg swelling gradually worsening over the past few weeks. Patient also endorses a history of orthopnea. Patient is unsure if he has gained weight. Denies any chest pain, fever, cough or congestion. Seen by his primary care physician who noted that the patient did have some rales and some pedal edema and sent him to the ER for further evaluation. Acute exacerbation of diastolic CHF - Outpt 2D echocardiogram from 10/2016 showed EF of 60-65% with grade 1 diastolic dysfunction - Pt was given Lasix 80 mg IV given in ER - He had been continued on Lasix 40 mg IV BID - Chest X-Ray (05/06/18) -->Minimal bibasilar atelectasis. - Chest CTA (05/07/18) 1. No pulmonary emboli. 2. 6 mm nodule pulmonary nodule on the left. Current guidelines suggest a repeat CT of the chest in 6 months. - Pt anxious about pulmonary nodule. He has 2 siblings who had cancer, so obtain repeat CT in 3 months. - Repeat CXR (05/09/18) --> bibasilar atelectasis - CKMB, troponin (05/08) --> WNL - Lexiscan (05/09/18) 1. Small segment of stress-induced ischemia anterior myocardium 2. Depressed ejection fraction with inferior lateral hypokinesis. - Appreciate input from [facility] Cardiology - On 05/11/18 pt had noted increased LE edema. Lasix was increased to 40mg IV TID and Aldactone 25mg po daily was added - Monitor I&Os closely - DVT prophylaxis iv lasix converted to po 05/13 walk test for home o2 and arrangments made needs close cardiology f/u on dc monitor bmp HTN - stable on amlodipine 5mg and losartan 100mg daily HLD - continue Lipitor - Triglyceride 922. D/t uncontrolled DM - LDL could NOT be calculated d/t elevated trig - improve glycemic control & repeat fasting lipid panel in 1 month - Tricor 145mg po daily added on 05/10 COPD - Does not appear to be in acute exacerbation - Duo nebs Q6H while awake and as needed - Symbicort on puff BID - anticipate pt will require home oxygen upon discharge - Pt has already been diagnosed with KEITH by Dr. Hoffman. - Pt does NOT use his CPAP d/t ill fitting mask. - Pt requested evaluation from Pulmonology for the lung nodule and hx of COPD He will f/u Dr Andre on dc for copd and lung nodule. DM type 2 - Glipizide increased to 5mg BID - Glucophage increased to 1000mg BID - increased levemir. - HgA1C --> 14.3 (05/08/18) - SSI - consulted staff educator needs close pcp f/u. Diabetic peripheral neuropathy - Continue patient's home gabapentin Current tobacco user - Counselled encouraged to abstain - Patient requesting nicotine patch DVT prophylaxis with SCDs Progress Note: Quality VTE Deep Vein Thrombosis/Pulmonary Embolism Present on Admission: No
--- NOTE | 2018-05-15 16:23 | P.DCO ---
Physical Therapy Order: Evaluate and treat Home Health Nursing Order: Medical education, Signs/symptoms of disease process, Diabetic education , Medication education-adverse effect and Nursing assessment with vital signs Instructions: Please evaluate patient to assure he is checking blood glucose before meals and bedtime. He should be documenting the blood glucose levels and insulin administer. Please assure he is injecting the levemir and novolog(per sliding scale) correctly. He also needs BMP check on 05/19. Please notify [facility] cardiology office Dr Yosvany Melgar with results. Case Management Consult Case Management Consult-Home Health: Yes I have seen patient Jarred Leon on 05/15/18. My clinical findings support the need for the requested home health care services because: I certify that my clinical findings support that this patient is homebound because:
[2018-05-16 05:28] LABS: Calcium 9.1 mg/dL (8.5-10.1); Carbon Dioxide 38.9 meq/L (21.0-32.0); Potassium 4.2 meq/L (3.5-5.1)
[2018-05-16 09:04] VITALS: BP 132/79; PULSE 86; RESP 18; TEMP 98.1; O2SAT 93
[2018-05-16] MEDS: Fenofibrate 145 MG Tablet PO SCH (09:06)
[2018-05-16] MEDS: glipiZIDE 5 MG Tablet PO SCH (09:06)
[2018-05-16] MEDS: Gabapentin 400 MG Capsule PO SCH (09:06)
[2018-05-16] MEDS: Senna/Docusate Sodium 8.6/50 MG Tablet PO SCH (09:07)
[2018-05-16] MEDS: Spironolactone 25 MG Tablet PO SCH (09:07)
[2018-05-16] MEDS: Insulin NovoLOG Aspart Correctional Sugar Inj SQ SCH (09:12)
[2018-05-16] MEDS: Insulin Detemir Inj 1,000 UNIT/10 ML Vial SQ SCH (09:13)
[2018-05-16] MEDS: Furosemide 40 MG Tablet PO SCH (09:19)
[2018-05-16] MEDS: Sodium Chloride 0.9% 2 ML Flush BID IV.FLUSH SCH (09:59)
[2018-05-16] MEDS: Budesonide-Formoterol 160/4.5 MCG 6 GM Inhaler INH SCH (10:03)
--- NOTE | 2018-05-16 18:11 | P.DS ---
DS: Providers Date of admission: 05/07/18 18:27 Primary care physician: No Primary Care Physician Consults: 05/09/18 11:10 Consult to Cardiology Routine Consulting Provider: Rosales Ordaz Does the patient have a Trauma Doctor who follows them?: No Preferred Language Interpreter:: Yosvany Melgar Reason for Consultation: SOB diastolic dysfunction abnormal lexiscan Notified:: Office Spoke with:: WILMA Date Notified:: 05/09/18 Time Notified:: 11:31 Ordering Provider: [place] 05/11/18 14:32 Consult to Pulmonology Routine Consulting Provider: Brain Andre Reason for Consultation: Copd, lung nodule Notified:: Office Spoke with:: DEREK Date Notified:: 05/11/18 Time Notified:: 14:35 Ordering Provider: ELY 05/16/18 16:51 HUB Only Consult Order Routine Consulting Provider: [facility] Brief History from admission: This is a 47 year old male patient with a past medical history which includes HTN, HLD, COPD, DM type 2, current tobacco use and diastolic CHF last echocardiogram in outpatient records 10/2016 showed EF of 60-65% with grade 1 diastolic dysfunction. Patient presents the emergency department for evaluation of shortness of breath and leg swelling gradually worsening over the past few weeks. Patient also endorses a history of orthopnea. Patient is unsure if he has gained weight. Patient denies changes in diet and reports he has been compliant with his home Lasix 40 mg PO daily. Denies any chest pain, fever, cough or congestion. Seen by his primary care physician who noted that the patient did have some rales and some pedal edema and sent him to the ER for further evaluation. Patient reports that his breathing and bilateral lower extremity edema have improved after the Lasix given last night. Patient continues to have 1-2+ bilateral pitting edema and discomfort/numbness. PMH: HTN, HLD, COPD, DM type 2, current tobacco use and diastolic CHF last echocardiogram in outpatient records 10/2016 showed EF of 60-65% with grade 1 diastolic dysfunction PSxH: colon rescetion with reanastomosis FMH: Mother had CO in her 60s, HTN Social history: ETOH: quit drinking 06/2017 - prior to that was a heavy ETOH user current tobacco use "a few ciggarttes a day, smoked 1 PPD from age 15 to 45 DS: Summary Assessment/Plan This is a 47 year old male patient with a past medical history which includes HTN, HLD, COPD, DM type 2, current tobacco use and diastolic CHF last echocardiogram in outpatient records 10/2016 showed EF of 60-65% with grade 1 diastolic dysfunction. Patient presents the emergency department for evaluation of shortness of breath and leg swelling gradually worsening over the past few weeks. Patient also endorses a history of orthopnea. Patient is unsure if he has gained weight. Denies any chest pain, fever, cough or congestion. Seen by his primary care physician who noted that the patient did have some rales and some pedal edema and sent him to the ER for further evaluation. Acute exacerbation of diastolic CHF - Outpt 2D echocardiogram from 10/2016 showed EF of 60-65% with grade 1 diastolic dysfunction - Pt was given Lasix 80 mg IV given in ER - He had been continued on Lasix 40 mg IV BID - Chest X-Ray (05/06/18) -->Minimal bibasilar atelectasis. - Chest CTA (05/07/18) 1. No pulmonary emboli. 2. 6 mm nodule pulmonary nodule on the left. Current guidelines suggest a repeat CT of the chest in 6 months. - Pt anxious about pulmonary nodule. He has 2 siblings who had cancer, so obtain repeat CT in 3 months. - Repeat CXR (05/09/18) --> bibasilar atelectasis - CKMB, troponin (05/08) --> WNL - Lexiscan (05/09/18) 1. Small segment of stress-induced ischemia anterior myocardium 2. Depressed ejection fraction with inferior lateral hypokinesis. - Appreciate input from [facility]iology - On 05/11/18 pt had noted increased LE edema. 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 D/t uncontrolled DM - LDL could NOT be calculated d/t elevated trig - improve glycemic control & repeat fasting lipid panel in 1 month - Tricor 145mg po daily added on 05/10 COPD - Does not appear to be in acute exacerbation - Duo nebs Q6H while awake and as needed - Symbicort one puff BID -Pt has boy also and needs to continue cpap. -Pt seen here by Dr Andre for copd and lung nodule. f/u outpt for both. -home o2 arranged. DM type 2 - Glipizide increased to 5mg BID - Glucophage increased to 1000mg BID - increased levemir. 25u bid. novolog ssi at home - Long discussion about how to use his insulin at home...likely it will need further adjusting as he monitors it closely over next 2-4 weeks which can be done by his pcp. - HgA1C --> 14.3 (05/08/18) - consulted conservation educator Diabetic peripheral neuropathy - Continue patient's home gabapentin Current tobacco user - Counselled encouraged to abstain - Time Spent with Patient Total time spent providing and/or coordinating discharge services: Quality: VTE Deep Vein Thrombosis/Pulmonary Embolism Present on Admission: No Results Labs on day of discharge: Labs from last 24 hours 05/16/18 05/16/18 05/15/18 08:03 04:30 20:52 Sodium 135 L Potassium 4.2 Chloride 89 L Carbon Dioxide 38.9 H Anion Gap 7 BUN 39 H Creatinine 0.92 Estimated GFR 88 L POC Glucose 171 H 264 H Random Glucose 247 H D Calcium 9.1 Impressions ITS Impressions Chest CTA 05/07/18 00:03 CONCLUSION: 1. No pulmonary emboli. 2. 6 mm nodule pulmonary nodule on the left. Current guidelines suggest a repeat CT of the chest in 6 months. Myocardial Perfusion Scan Nuc Med 05/09/18 08:00 CONCLUSION: 1. Small segment of stress-induced ischemia anterior myocardium 2. Depressed ejection fraction with inferior lateral hypokinesis. Chest X-Ray 05/12/18 07:00 CONCLUSION: Minimal bibasilar atelectatic changes. Discharge Plan Discharge Disposition Patient Disposition: W/Home Health Service Discharge Condition Condition: Stable Discharge Order Discharge Orders: Discharge Order (Routine); Ordered 05/16/18 Ordered By: Jas Jones Discharge Details Anticipated Discharge Date: 05/16/18 Discharge Comment: give the patient a copy of our low dose novolog sliding scale insulin to use at home tidac. Physicians Team Primary Care Provider: Primary Care Ama Benoit Attending Provider: Romeo Taylor Other Providers: Rosales Ordaz ; Brain Andre ; [facility] Rxs /Orders / Referrals /Forms Prescriptions: New metformin [Glucophage] 500 mg Tablet 1,000 mg PO BIDPC Qty: 120 RF: 0 aspirin 81 mg Tablet,Delayed Release (Dr/Ec) 81 mg PO DAILY Qty: 30 RF: 0 fenofibrate nanocrystallized 145 mg Tablet 145 mg PO DAILY Qty: 30 RF: 0 losartan 50 mg Tablet 50 mg PO DAILY Qty: 30 RF: 3 spironolactone [Aldactone] 25 mg Tablet 25 mg PO DAILY Qty: 30 RF: 3 insulin detemir U-100 [Levemir FlexTouch U-100 Insuln] 100 unit/mL (3 mL) insulin pen 25 unit SQ BID 30 Days Qty: 15 RF: 3 insulin aspart U-100 [Novolog Flexpen U-100 Insulin] 100 unit/mL insulin pen 1 - 12 unit subcut TIDAC 30 Days RF: 0 Continue furosemide 40 mg Tablet 40 mg PO DAILY RF: 0 gabapentin 400 mg Capsule 400 mg PO TID RF: 0 fluticasone [Flovent HFA] 110 mcg/actuation Hfa Aerosol Inhaler 1 puff INHALATION Q12H PRN (Reason: Shortness Of Breath) RF: 0 atorvastatin [Lipitor] 20 mg Tablet 20 mg PO DAILY RF: 0 Changed glipizide 5 mg Tablet 5 mg PO BID Qty: 60 RF: 0 Discontinued potassium chloride 10 mEq Tablet Extended Release 10 meq PO DAILY RF: 0 amlodipine 5 mg Tablet 5 mg PO DAILY RF: 0 losartan 100 mg Tablet 100 mg PO DAILY RF: 0 Ambulatory Orders / Order Sets / DME: Oxygen Tank (2-5 liter) (Routine) Location: Determined by Patient Ordered By: Amee Sanford Referrals: Brain Andre MD [Physician] - See Instructions (f/u 1-2 weeks. Lung nodule and copd) Primary Care Ama Benoit [Primary Care Provider] - See Instructions Yosvany Melgar DO [Physician] - See Instructions (f/u 1 week for congestive heart failure.) Discharge Instructions Patient Printed Instructions: Spironolactone (By mouth), Aspirin (By mouth), Losartan (By mouth), Metformin (By mouth), Fenofibrate (By mouth), Insulin Aspart, Recombinant (By injection), Insulin Detemir (By injection), Heart Failure (DC), Foot Care for People with Diabetes (DC), Type 2 Diabetes in Adults (DC), Managing Diabetes During Sick Days (DC), Hemoglobin A1c (GEN) Additional Instructions: IMPORTANT PHONE NUMBERS: [facility] [phone] or [phone] Post Discharge Care Plan Care Plan Goals: Discharge Care Plan Goals for Congestive Heart Failure Directions to Meet your Goals: 1. Diet: Limit your salt by doing the following: * Limit canned, dried, packaged, and fast foods. * Don't add salt to your food. * Season foods with herbs instead of salt. * Watch how much liquids you drink. Drinking too much can make heart failure worse. Talk with your health care provider about how much you should drink each day. * Limit the amount of alcohol you drink. It may harm your heart. Women should have no more than 1 drink a day and men should have no more than 2. * When you eat out, request that your meals have no added salt. 2. Activity: * You can benefit from simple activities such as walking or gardening. * Exercising most days of the week can make you feel better. * Don't be discouraged if your progress is slow at first. * Rest as needed. * Stop activity if you develop symptoms such as chest pain, lightheadedness, or significant shortness of breath. * Find activities that you enjoy, such as brisk walking, dancing, swimming, or gardening. These will help you stay active and strengthen your heart. 3. Medicine: * Take your medicines exactly as prescribed. * Learn the names and purpose of each of your medicines. * Keep an accurate medicine list and current dosages with you at all times. Don' t skip doses. * If you miss a dose of your medicine, take it as soon as you remember. * If you miss a dose and it's almost time for your next dose, just wait and take your next dose at the normal time. Don't take a double dose. * If you are unsure, call your doctor's office. Make sure not to mix up your medicines or forget what you've taken the same day. 4. Weight Monitoring: * Weigh yourself every day. A sudden weight gain can mean your heart failure is getting worse. * Weigh yourself at the same time of day and in the same kind of clothes. * Ideally, weigh yourself first thing in the morning after you empty your bladder, but before you eat breakfast. * If your weight goes up by more than 2 pounds in 1 day, 5 pounds in 1 week, or whatever weight gain you were told by your doctor, this is a sign that you are retaining more fluid than you should be. * Clues to weight gain include checking your ankles for swelling, or noticing you are short of breath when you lie down. 5. When to call your doctor: Call your doctor right away if you have any of these signs of worsening heart failure: Sudden weight gain (more than 2 pounds in 1 day or 5 pounds in 1 week, or whatever weight gain you were told to report by your doctor) Trouble breathing not related to being active New or increased swelling of your legs or ankles Swelling or pain in your abdomen Breathing trouble at night (waking up short of breath, needing more pillows to breathe) Frequent coughing that doesn't go away Feeling much more tired than usual 6. Follow up: Do Not miss your follow-up appointment. Keep up with all your appointments and yearly check ups Call 911 right away if you have: Severe shortness of breath, such that you can't catch your breath even while resting Severe chest pain that does not resolve with rest or nitroglycerin [place], foamy mucus with cough and shortness of breath A continuous rapid or irregular heartbeat Passing out or fainting Stroke symptoms such as sudden numbness or weakness on one side of your face , arm, or leg or sudden confusion, trouble speaking or vision changes Status ED Status: Left Department Discharge Information Discharge Date/Time: 05/16/18 12:23
== END 2018-05-16 12:23 | disposition home health service (06) ==
LOC: NEDA 20:47 → NEPE 20:47 → NEPHCDU 05-07 05:36 → N04 05-08 17:26
PROVIDERS: ADMIT Hospitalist; ATTEND Hospitalist
DX: Z68.41 Body mass index [BMI] 40.0-44.9, adult; E66.01 Morbid (severe) obesity due to excess calories; F17.210 Nicotine dependence, cigarettes, uncomplicated; J44.9 Chronic obstructive pulmonary disease, unspecified; E11.65 Type 2 diabetes mellitus with hyperglycemia; E11.42 Type 2 diabetes mellitus with diabetic polyneuropathy; Z88.5 Allergy status to narcotic agent; Z79.4 Long term (current) use of insulin; Z79.899 Other long term (current) drug therapy; J98.11 Atelectasis; Z90.49 Acquired absence of other specified parts of digestive tract; I50.33 Acute on chronic diastolic (congestive) heart failure; Z82.49 Family history of ischemic heart disease and other diseases of the circulatory system; G47.33 Obstructive sleep apnea (adult) (pediatric); Z23 Encounter for immunization; J96.91 Respiratory failure, unspecified with hypoxia; E78.5 Hyperlipidemia, unspecified; I11.0 Hypertensive heart disease with heart failure; R91.1 Solitary pulmonary nodule